=== PATIENT | female | born 1955 | race Caucasian/White ===

== ENCOUNTER → 2016-06-21 | Outpatient (CLI) | payer OTHER ==
[~2016-06-21] MED LIST: ASPCH81 PO; CLOP1TAB15 PO; FLUO10CA48 PO; METO25TA56 PO; SIMV80TA2 PO
--- NOTE | 2016-06-21 15:35 | MAMMOGRAPHY REPORT ---
BILATERAL DIGITAL SCREENING MAMMOGRAM TOMOSYNTHESIS WITH CAD: 06/21/2016 CLINICAL HISTORY: Routine screening. Patient has no complaints. TECHNIQUE: Breast tomosynthesis in addition to standard 2D mammography was performed. Current study was also evaluated with a Computer Aided Detection (CAD) system. COMPARISON: Comparison is made to exams dated: 06/20/2015 mammogram, 06/11/2013 mammogram, 06/14/2014 m ammogram, 06/06/2012 mammogram, 06/01/2011 mammogram, and 05/29/2010 mammogram - [facility]. BREAST COMPOSITION: There are scattered areas of fibroglandular density in both breasts. FINDINGS: No suspicious masses, calcifications, or areas of architectural distortion are noted in e ither breast. There are increased calcifications in the right lower inner quadrant although these ar e in association with a fat density mass (oil cyst), and consistent with dystrophic calcifications f rom fat necrosis. IMPRESSION: ACR BI-RADS CATEGORY 2: BENIGN There is no mammographic evidence of malignancy. A 1 year screening mammogram is recommended. The p atient will receive written notification of the results. Approximately 10% of breast cancers are not detected with mammography. A negative mammographic repor t should not delay biopsy if a clinically suggestive mass is present. Ann Sanchez M.D. ah/:06/21/2016 15:03:35 Manager Assurance: Igor PINTO(R)(M), [facility] letter sent: Normal 1/2 BI-RADS Code: ACR BI-RADS Category 2: Benign
== END | disposition home or self-care (01) ==
LOC: C.MAMM 10:49
PROVIDERS: ATTEND Family Medicine
DX: Z12.31 Encounter for screening mammogram for malignant neoplasm of breast (principal)

== ENCOUNTER → 2017-05-24 | Outpatient (CLI) | payer OTHER ==
[2017-05-24 12:30] LABS: CHOLESTEROL/HDL RATIO 2.4
== END | disposition home or self-care (01) ==
LOC: C.LABBFT 09:00
PROVIDERS: ATTEND Internal Medicine Cardiovascular Disease
DX: E78.5 Hyperlipidemia, unspecified (principal); I10 Essential (primary) hypertension

== ENCOUNTER → 2017-07-03 | Outpatient (CLI) | payer OTHER ==
[2017-07-03 18:03] LABS: BASO % 0.5 %; BASO ABS # 0.04 K/uL (0-0.2); EOS % 4.2 %; EOS ABS # 0.32 K/uL (0-0.5); HEMATOCRIT 45.1 % (37-47); HEMOGLOBIN 14.7 g/dL (12.0-16.0); IG# 0.01 K/uL (0.00-0.02); LYMPH % 25.4 %; LYMPH ABS # 1.92 K/uL (1.2-3.4); MEAN CELL VOLUME 95.8 fL (80-100); MEAN CORPUSCULAR HEMOGLOBIN 31.2 pg (25-34); MEAN CORPUSCULAR HGB CONC 32.6 g/dl (32-36); MEAN PLATELET VOLUME 11.3 fL (7.4-10.4); MONO % 6.7 %; MONO ABS # 0.51 K/uL (0.11-0.59); NEUT % 63.1 %; NEUT ABS # 4.76 K/uL (1.4-6.5); PLATELET COUNT 271 K/uL (130-400); RED CELL DISTRIBUTION WIDTH CV 13.4 % (11.5-14.5); RED CELL DISTRIBUTION WIDTH SD 46.9 fL (36.4-46.3); WHITE BLOOD COUNT 7.56 K/uL (4.8-10.8)
[2017-07-03 18:05] LABS: BLOOD UREA NITROGEN 14 mg/dl (7-18); CALCIUM 9.3 mg/dl (8.5-10.1); CARBON DIOXIDE 27 mmol/L (21-32); CREATININE 0.98 mg/dl (0.60-1.20); GLUCOSE 99 mg/dl (70-99); POTASSIUM 3.6 mmol/L (3.5-5.1); SODIUM 139 mmol/L (136-145)
== END | disposition home or self-care (01) ==
LOC: C.LABBFT 15:30
PROVIDERS: ATTEND Physician Assistant Medical
DX: R31.9 Hematuria, unspecified (principal)

== ENCOUNTER → 2017-07-05 | Outpatient (CLI) | payer OTHER ==
--- NOTE | 2017-07-05 09:42 | DIAGNOSTIC IMAGING REPORT ---
CT SCAN OF THE ABDOMEN AND PELVIS WITHOUT IV CONTRAST CLINICAL HISTORY: Right flank pain. Hematuria. COMPARISON STUDY: Abdominal CT dated 03/11/2008. TECHNIQUE: CT scan of the abdomen and pelvis is performed from the lung bases to the proximal femora. Images are reviewed in the axial, sagittal, and coronal planes. IV contrast was not administered for this examination. A dose lowering technique was utilized adhering to the principles of ALARA. CT DOSE: 435.58 mGy.cm FINDINGS: Lung bases: The heart is normal in size and without pericardial effusion. The lung bases are clear. Liver: The unenhanced liver is normal in size, contour, and attenuation. There is no intrahepatic biliary ductal dilatation. Gallbladder: Small gallstones are suspected. The gallbladder is otherwise normal in appearance. Spleen: Normal in size and attenuation. Pancreas: Unremarkable. Adrenal glands: Unremarkable. Kidneys: The unenhanced kidneys demonstrate cortical atrophy. There is a 7 mm obstructing calculus in the right proximal ureter seen on image #166 which causes mild right-sided hydronephrosis. This is located just below the ureteropelvic junction at the level of L2-L3. 2 additional punctate nonobstructing calculi are seen in the right. No left renal calculi are clearly seen. There is no left-sided hydronephrosis. There is no evidence of contour deforming renal mass lesion. Abdominal vasculature: The abdominal aorta is normal in course and caliber noting moderate atherosclerotic calcification. Bowel: There are scattered colonic diverticula without CT evidence of acute diverticulitis. No bowel obstruction is seen. The appendix is well-visualized and normal. Peritoneum: There is no intraperitoneal free air or abdominal ascites. There is a tiny fat-containing umbilical hernia. Lymphadenopathy: None. Pelvic viscera: The bladder, uterus, and adnexa are normal as visualized. A surgical clip is noted in the left adnexa. Skeletal structures: The skeletal structures are osteopenic. There are postoperative changes from L5 -S1 spinal fusion. A disc herniation is suspected at L3-L4. No lytic or blastic lesions are seen. IMPRESSION: 1. There is a 7 mm obstructing calculus in the right proximal ureter. This causes mild right-sided hydronephrosis. 2. At least 2 additional punctate nonobstructing calculi are noted in the right kidney. 3. No left renal calculi are clearly seen. 4. Additional findings as above. Electronically signed by: Keshawn Boston M.D. 07/05/2017 9:41 AM Dictated Date/Time: 07/05/2017 9:34 AM
== END | disposition home or self-care (01) ==
LOC: C.CTS 09:15
PROVIDERS: ATTEND Physician Assistant Medical
DX: N20.2 Calculus of kidney with calculus of ureter (principal)

== ENCOUNTER → 2017-07-09 | Outpatient (CLI) | payer OTHER ==
[~2017-07-09] MED LIST changes: +ASPI81TA28 PO; +CLON0.5T3 PO; +ONDA4TAB46 PO; +PANT40TA PO
--- NOTE | 2017-07-09 12:15 | DIAGNOSTIC IMAGING REPORT ---
[facility] CLINICAL HISTORY: 61 years-old Female presenting with N20.0 [id number]. TECHNIQUE: Single supine view of the abdomen was obtained. COMPARISON: CT from 07/05/2017. FINDINGS: Nonobstructive bowel gas pattern. No gross pneumoperitoneum. Allowing for bowel gas and stool, calcification projects over the lower pole of the right kidney. Atherosclerosis suspected. Posterior lumbar fusion hardware at L5-S1 with laminectomy defect. IMPRESSION: 1. The previously noted calculus in the proximal right ureter may have been displaced into a lower pole calyx as the calculus now projects over the right lower pole. Electronically signed by: Brant Bal M.D. 07/09/2017 12:13 PM Dictated Date/Time: 07/09/2017 12:11 PM
--- NOTE | 2017-07-09 13:34 | DIAGNOSTIC IMAGING REPORT ---
CHEST 2 VIEWS ROUTINE CLINICAL HISTORY: NEPHROLITHIASIS PREOPERATIVE CHEST COMPARISON STUDY: No previous studies for comparison. FINDINGS: The cardiac and mediastinal contours are normal. There is no evidence of focal pulmonary consolidation. There is no evidence of failure. No pleural effusions are visualized.[ IMPRESSION: No active disease in the chest. Electronically signed by: Saad Chambers M.D. 07/09/2017 1:32 PM Dictated Date/Time: 07/09/2017 1:32 PM
== END | disposition home or self-care (01) ==
LOC: C.RAD 11:37
PROVIDERS: ATTEND Urology
DX: N20.0 Calculus of kidney (principal)

== ENCOUNTER → 2017-07-18 | Outpatient (CLI) | payer OTHER ==
[~2017-07-18] MED LIST changes: -ASPCH81 PO; -CLOP1TAB15 PO; -FLUO10CA48 PO
--- NOTE | 2017-07-18 15:48 | DIAGNOSTIC IMAGING REPORT ---
K[facility] HISTORY: Follow-up study in a patient with nephrolithiasis. Preoperative evaluation for lithotripsy N20.0 [id number] COMPARISON: [facility] 07/09/2017, CT 07/05/2017. FINDINGS: The bowel gas pattern is non-obstructive. There is no organomegaly. The previously noted 5 mm calculus of the proximal right ureter has migrated inferiorly approximately 4 cm now at the level of L3. No additional nephrolithiasis or ureteral calculi. Renal shadows are partially obscured by bowel gas. No pneumoperitoneum or pneumatosis. No fracture. Fusion hardware at L5-S1 redemonstrated. IMPRESSION: Approximately 4 cm distal migration of the 5 mm right ureteral calculus, now at the level of L3. Electronically signed by: Yosvany Tang M.D. 07/18/2017 3:46 PM Dictated Date/Time: 07/18/2017 3:43 PM
== END | disposition home or self-care (01) ==
LOC: C.RAD 15:22
PROVIDERS: ATTEND Urology
DX: N20.0 Calculus of kidney (principal)

== ENCOUNTER → 2017-07-19 | Day surgery (SDC) | payer OTHER ==
[2017-07-11 13:20] VITALS: Ht 154.9 cm; Wt 72.7 kg
[~2017-07-19] VITALS: Ht 154.9 cm; Wt 72.7 kg
[~2017-07-19] MED LIST changes: +ATROPINE SULFATE 0.1 MG/ML 5ML SYR IV PRN; +CIPROFLOXACIN 400MG / D5W IV SCH; +EpHEDrine SULFATE INJ 50 MG/ML AMP IV PRN; +FENTANYL CITRATE INJ 50 MCG/1 ML 2 ML VIAL ONE; +LACTATED RINGER'S 1000ML 1,000 ML IV SCH; +LIDOCAINE HCL 2% 2 ML VIAL (20MG/ML) ONE; +MIDAZOLAM HCL 1 MG/ML 2ML VIAL ONE; +ONDANSETRON INJ 2 MG/ML 2 ML VIAL IV PRN; +ONDANSETRON INJ 2 MG/ML 2 ML VIAL ONE; +OXYCODONE/ACETAMINOPHEN 5-325 TAB PO PRN; +PROPOFOL IV EMULSION 10 MG/ML 20 ML VIAL IV ONE
--- NOTE | 2017-07-19 07:01 | History & Physical Bridge Note ---
H&P Re-Evaluation Bridge Note: I have examined the patient, reviewed the History & Physical and in the interval since the performance of the History & Physical I have noted the following changes of clinical significance: No changes noted
--- NOTE | 2017-07-19 07:46 | [facility] Post Operative Brief Note ---
Immediate Operative Summary Operative Date Jul 19, 2017. Pre-Operative Diagnosis Right Upper Ureteral Calculi Post-Operative Diagnosis Same Procedure(s) Performed Right Ureteral Extracorporeal Shock Wave Lithotripsy Surgeon Dr. Martín Mills Mailroom Associate Surgeon(s) None Estimated Blood Loss 0 Findings See Below Good stone fragmentation on fluoro Specimens None Drains None Anesthesia Type General Complication(s) none Disposition Accompanied Pt To Recover: no Disposition: Recovery Room / PACU
--- NOTE | 2017-07-19 07:50 | Discharge Instructions ---
Discharge Instructions Date of Service Jul 19, 2017. Admission Reason for Admission: Stones Discharge Discharge Diagnosis / Problem: R UPJ stone s/p ESWL Discharge Goals Goal(s): Decrease discomfort, Improve function, Improve disease control, Therapeutic intervention Activity Recommendations Activity Limitations: as noted below Lifting Limitations: no more than 25 pounds, gradually increase as tolerated Exercise/Sports Limitations: rest today, gradually increase as tolerated May Resume Sexual Activity: when tolerated Shower/Bathe: no limitations Driving or Machine Use: resume 1 day after discharge . Instructions / Follow-Up Instructions / Follow-Up Follow-up as scheduled in office with [facility] Xray beforehand. Current Hospital Diet Patient's current hospital diet: Discharge Diet Recommended Diet: Regular Diet (good fluid intake) Procedures Procedures Performed: Right Ureteral Extracorporeal Shock Wave Lithotripsy Pending Studies Studies pending at discharge: no Laboratory Results Lipid Panel Test 05/24/17 09:06 Range/Units Triglycerides Level 71 0-150 mg/dl Cholesterol Level 139 0-200 mg/dl HDL Cholesterol 59 mg/dl Cholesterol/HDL Ratio 2.4 LDL Cholesterol, Calculated 66 mg/dl Medical Emergencies . Who to Call and When: Medical Emergencies: If at any time you feel your situation is an emergency, please call 911 immediately. . Non-Emergent Contact Non-Emergency issues call your: Urologist Call Non-Emergent contact if: you have a fever, temperature is above 101, your pain is not controlled, your pain is worsening, your pain is unusual for you, your pain is concerning you, you have any medication questions . . "Provider Documentation" section prepared by Suresh Mills. . VTE Core Measure Inpt VTE Proph given/why not?: SCD's
--- NOTE | 2017-07-19 08:06 | OPERATIVE REPORT ---
DATE OF OPERATION: 07/19/2017 PREOPERATIVE DIAGNOSIS: Right ureteropelvic junction stone. POSTOPERATIVE DIAGNOSIS: Same. PROCEDURE: Right upper ureteral extracorporeal shockwave lithotripsy. SURGEON: Dr. Suresh Mills. SLIVER LAP TENDER: None. ANESTHESIA: General anesthesia with laryngeal mask. COMPLICATIONS: None. ESTIMATED BLOOD LOSS: None. FINDINGS: Excellent stone fragmentation on fluoroscopy. DETAILS OF PROCEDURE: The patient was brought to the litho suite. He was correctly identified and the stone was visualized on his most recent x-rays. After the correct time out was performed the patient was positioned over the therapy head. An adequate level of anesthesia was administered. The extracorporeal shockwave lithotripsy treatment was then commenced. Please see the [facility] Management sheet for complete treatment summary. After completion of the procedure the patient was taken to the recovery room in stable condition. I attest to the content of the Intraoperative Record and any orders documented therein. Any exception s are noted below.
[2017-07-19 08:38] VITALS: TEMP 36.2
[2017-07-19 09:02] VITALS: BP 122/83; PULSE 55; O2SAT 100
--- NOTE | 2017-07-19 09:03 | Anesthesia Progress Nt - [facility] ---
Anesthesia Post Op Note Date & Time Jul 19, 2017 at 09:03 Vital Signs Pain Intensity: 0 Vital Signs Past 12 Hours Date Time Temp Pulse Resp B/P (MAP) Pulse Ox O2 Delivery O2 Flow Rate FiO2 07/19/17 08:38 36.2 59 16 106/66 (79) 96 Room Air 07/19/17 08:35 36.2 65 16 119/70 97 Room Air 07/19/17 08:32 64 15 07/19/17 08:32 63 15 97 07/19/17 08:31 122/71 07/19/17 08:27 57 9 98 07/19/17 08:27 58 9 07/19/17 08:26 115/67 07/19/17 08:22 59 8 07/19/17 08:22 59 8 98 07/19/17 08:21 118/65 07/19/17 08:17 60 12 98 07/19/17 08:17 60 12 07/19/17 08:16 118/68 07/19/17 08:12 61 12 98 07/19/17 08:12 61 12 07/19/17 08:11 113/70 07/19/17 08:07 63 12 07/19/17 08:07 63 12 97 07/19/17 08:06 112/67 07/19/17 08:04 62 13 97 07/19/17 08:04 62 13 07/19/17 08:01 117/65 07/19/17 07:59 36.3 65 16 117/66 96 Mask 4 07/19/17 06:29 36.7 72 16 131/82 (98) 97 Room Air Notes Mental Status: alert / awake / arousable, participated in evaluation Pt Amnestic to Procedure: Yes Nausea / Vomiting: adequately controlled Pain: adequately controlled Airway Patency, RR, SpO2: stable & adequate BP & HR: stable & adequate Hydration State: stable & adequate Anesthetic Complications: no major complications apparent
== END | disposition home or self-care (01) ==
LOC: X.SURG 06:13
PROVIDERS: ATTEND Urology
DX: N20.1 Calculus of ureter (principal); I25.2 Old myocardial infarction; F41.9 Anxiety disorder, unspecified; Z79.82 Long term (current) use of aspirin; Z79.899 Other long term (current) drug therapy; Z88.8 Allergy status to other drugs, medicaments and biological substances; Z90.89 Acquired absence of other organs; Z98.890 Other specified postprocedural states

== ENCOUNTER → 2017-08-01 | Outpatient (CLI) | payer OTHER ==
[~2017-08-01] MED LIST changes: -ATROPINE SULFATE 0.1 MG/ML 5ML SYR IV PRN; -CIPROFLOXACIN 400MG / D5W IV SCH; -EpHEDrine SULFATE INJ 50 MG/ML AMP IV PRN; -FENTANYL CITRATE INJ 50 MCG/1 ML 2 ML VIAL ONE; -LACTATED RINGER'S 1000ML 1,000 ML IV SCH; -LIDOCAINE HCL 2% 2 ML VIAL (20MG/ML) ONE; -MIDAZOLAM HCL 1 MG/ML 2ML VIAL ONE; -ONDANSETRON INJ 2 MG/ML 2 ML VIAL IV PRN; -ONDANSETRON INJ 2 MG/ML 2 ML VIAL ONE; -OXYCODONE/ACETAMINOPHEN 5-325 TAB PO PRN; -PROPOFOL IV EMULSION 10 MG/ML 20 ML VIAL IV ONE
== END | disposition home or self-care (01) ==
LOC: C.LABSPEC 17:11
PROVIDERS: ATTEND Urology
DX: N20.0 Calculus of kidney (principal)

== ENCOUNTER → 2017-08-01 | Outpatient (CLI) | payer OTHER ==
--- NOTE | 2017-08-01 10:35 | DIAGNOSTIC IMAGING REPORT ---
[facility] CLINICAL HISTORY: N20.0 nephrocalcinosis COMPARISON STUDY: 07/18/2017 FINDINGS: The mid right ureteral calculus now appears to be somewhat fragmented. There is a 2 mm residual calcification in the region of the distal right ureter. All remaining components of the study are unchanged. Bowel pattern is nonobstructive. IMPRESSION: 1. Apparent interval fragmentation of a 5 mm calcification previous described mid right ureter. 2. A residual fragment appears to be present overlying the extreme distal right ureter immediately proximal to the right ureterovesical junction. 3. No residual fragments proximal to this level. The above report was generated using voice recognition software. It may contain grammatical, syntax or spelling errors. Electronically signed by: Julien Riddle M.D. 08/01/2017 10:34 AM Dictated Date/Time: 08/01/2017 10:32 AM
== END | disposition home or self-care (01) ==
LOC: C.RAD 10:16
PROVIDERS: ATTEND Urology
DX: N20.0 Calculus of kidney (principal); N20.1 Calculus of ureter

== ENCOUNTER → 2017-08-06 | Outpatient (CLI) | payer OTHER ==
--- NOTE | 2017-08-06 15:15 | MAMMOGRAPHY REPORT ---
BILATERAL DIGITAL SCREENING MAMMOGRAM TOMOSYNTHESIS WITH CAD: 08/06/2017 CLINICAL HISTORY: Routine screening. Patient has no complaints. TECHNIQUE: Breast tomosynthesis in addition to standard 2D mammography was performed. Current study was also evaluated with a Computer Aided Detection (CAD) system. COMPARISON: Comparison is made to exams dated: 06/21/2016 mammogram, 06/20/2015 mammogram, 06/14/2014 m ammogram, 06/11/2013 mammogram, 06/06/2012 mammogram, and 06/01/2011 mammogram - [facility] nter. BREAST COMPOSITION: There are scattered areas of fibroglandular density in both breasts. FINDINGS: There is a benign coarse calcification in the lower inner quadrant of the right breast, lik michelle representing fat necrosis as an oil cyst was previously identified in that location. No suspicio us mass, architectural distortion or cluster of suspicious microcalcifications is seen. IMPRESSION: ACR BI-RADS CATEGORY 1: NEGATIVE There is no mammographic evidence of malignancy. A 1 year screening mammogram is recommended. The pa tient will receive written notification of the results. Approximately 10% of breast cancers are not detected with mammography. A negative mammographic report should not delay biopsy if a clinically suggestive mass is present. Jes Ramos M.D. ay/:08/06/2017 12:58:54 Carburetor Expert: Elizabeth PINTO(Merritt)(Marina)(BD), [facility] letter sent: Normal 1/2 BI-RADS Code: ACR BI-RADS Category 1: Negative
== END | disposition home or self-care (01) ==
LOC: C.MAMM 12:26
PROVIDERS: ATTEND Internal Medicine
DX: Z12.31 Encounter for screening mammogram for malignant neoplasm of breast (principal)

== ENCOUNTER 2019-03-07 08:18 | Observation (INO) ==
[2019-03-07] MEDS ORDERED: NITROGLYCERIN SL 0.4 MG/TAB TAB SL STA (09:10)
[2019-03-07] MEDS ORDERED: ASPIRIN CHEW 324 MG PO STA (09:10)
[2019-03-07] MEDS ORDERED: SODIUM CHLORIDE 0.9% 1000ML 1,000 ML IV SCH (09:15)
[2019-03-07 09:41] LABS: Basophils # (auto) 0.04 K/uL (0-0.2); Basophils % (auto) 0.5 %; Eosinophils # (auto) 0.18 K/uL (0-0.5); Eosinophils % (auto) 2.4 %; Hemoglobin 14.8 g/dL (12.0-16.0); Immature Granulocytes # (auto) 0.01 K/uL (0.00-0.02); Immature Granulocytes % (auto) 0.1 %; Lymphocytes # (auto) 1.27 K/uL (1.2-3.4); Mean Corpuscular Hemoglobin 32.1 pg (25-34); Mean Corpuscular Hgb Conc 34.4 g/dL (32-36); Mean Corpuscular Volume 93.3 fL (80-100); Mean Platelet Volume 10.2 fL (7.4-10.4); Monocytes # (auto) 0.54 K/uL (0.11-0.59); Monocytes % (auto) 7.2 %; Neutrophils # (auto) 5.42 K/uL (1.4-6.5); Neutrophils % (auto) 72.8 %; Platelet Count 282 K/uL (130-400); RDW Coefficient of Variation 13.8 % (11.5-14.5); RDW Standard Deviation 47.5 fL (36.4-46.3); Red Blood Count 4.61 M/uL (4.2-5.4); White Blood Count 7.46 K/uL (4.8-10.8)
--- NOTE | 2019-03-07 09:43 | XRay Report ---
XR chest 1V portable CLINICAL HISTORY: Atypical chest pain COMPARISON STUDY: 09/05/2018 FINDINGS: The cardiac and mediastinal contours are normal. There is no evidence of focal pulmonary co nsolidation. There is no evidence of failure. No pleural effusions are visualized.[No pneumothorax is visualized. IMPRESSION: No active disease in the chest. Electronically signed by: Saad Chambers M.D. 03/07/2019 9:42 AM
[2019-03-07 09:55] LABS: Alanine Aminotransferase 16 U/L (12-78); Albumin Level 4.1 gm/dl (3.4-5.0); Aspartate Aminotransferase 12 U/L (15-37); BUN Creatinine Ratio 12.5 (10-20); Blood Urea Nitrogen 14 mg/dl (7-18); Calcium 9.7 mg/dl (8.5-10.1); Carbon Dioxide 23 mmol/L (21-32); Chloride 107 mmol/L (98-107); Creatinine Clr Calc Pharmacy 45.4 ml/min; Est GFR (African American) 60.4; Est GFR (Non-African American) 52.1; Glucose 96 mg/dl (70-99); Lipase 89 U/L (73-393); Potassium 3.7 mmol/L (3.5-5.1); Sodium 138 mmol/L (136-145)
[2019-03-07 10:00] LABS: Albumin Globulin Ratio 1.2 (0.9-2); Alkaline Phosphatase 91 U/L (45-117); Bilirubin,Total 0.4 mg/dl (0.2-1); Creatine Kinase 83 U/L (26-192); Creatine Kinase MB 1.2 ng/ml (0.5-3.6); Globulin 3.4 gm/dl (2.5-4.0); Total Protein 7.5 gm/dl (6.4-8.2); Troponin I < 0.015 ng/ml (0-0.045)
[2019-03-07 10:01] LABS: Appearance Urine Clear (Clear); Bilirubin Urine Negative (Negative); Blood Urine Negative (Negative); Color Urine Yellow; Glucose Urine UA Negative (Negative); Ketones Urine 1+ (Negative); Leukocyte Esterase Urine Negative (Negative); Nitrite Urine Negative (Negative); Protein Urine Negative (Negative); Specific Gravity Urine 1.023 (1.000-1.030); Urobilinogen Urine Negative (Negative); pH Urine 5.5 (4.5-7.5)
--- NOTE | 2019-03-07 10:11 | CT Scan Report ---
CT SCAN OF THE ABDOMEN AND PELVIS WITHOUT CONTRAST CLINICAL HISTORY: Diffuse abdominal pain COMPARISON STUDY: July 05, 2017 TECHNIQUE: CT scan of the abdomen and pelvis was performed from the lung bases to the proximal femurs . Images are reviewed in the axial, sagittal, and coronal planes. IV contrast was not administered fo r this examination. A dose lowering technique was utilized adhering to the principles of ALARA. CT DOSE: 444.41 mGy.cm FINDINGS: Lower chest: The heart is normal in size and configuration, without pericardial effusion. The lung ba ses and pleural spaces are clear. Liver: The unenhanced liver is normal in size, contour, and attenuation. There is no intrahepatic miguel iary ductal dilatation. Gallbladder: Cholelithiasis Spleen: Normal in size and attenuation. Pancreas: Unremarkable. Adrenal glands: Unremarkable. Kidneys: 3 right renal calculi are visualized. There is minimal fullness the right renal collecting s ystem. There is no ureteral dilatation. No ureteral calculi are visualized. Bowel: There are no transition zones indicate bowel obstruction. There is no evidence of acute divert iculitis. The appendix appears normal. Peritoneum: There is no intraperitoneal free air or abdominal ascites. Vasculature: The abdominal aorta is normal in course and caliber. Adenopathy: None. Pelvic viscera: The bladder, and pelvic viscera are unremarkable. Skeletal structures: Postsurgical changes are present within the lumbar spine. IMPRESSION: 1. No evidence of bowel obstruction. No evidence of free air 2. Normal appendix. No evidence of acute diverticulitis 3. Right-sided nephrolithiasis. No ureteral or bladder calculi identified 4. Cholelithiasis. Electronically signed by: Saad Chambers M.D. 03/07/2019 10:10 AM
--- NOTE | 2019-03-07 11:31 | History & Physical Report ---
Date of Service March 07, 2019 Assessment & Plan (1) Chest pain: Pt is 63 y/o F with PMH HTN, dyslipidemia, CAD s/p NE and RAMAN to LAD in 2009, lymphedema left leg, anxiety presented with c/o chest pressure last evening. In ER afebrile, P: 50's-80's, R: 18, BP: 123/81, 95% on RA. EKG: sinus bradycardia, rate 58, diffuse t wave inversion (seen on prior EKG 09/2018). Initial troponin negative. In ER given ASA, SL nitro x 1 with reported relief of chest pressure. CHEST PAIN R/O ACS. Risk factors: HTN, hyperlipidemia, CAD -Monitor Vitals -Repeat EKG in am -Will trend troponin -Echo -Llipid panel in am, continue statin -Continue aspirin and metoprolol -Nitro prn CP and repeat EKG for CP -Cardiology consult (2) Abdominal pain: Reported lower abdominal pain and pelvic pressure x 3 days. No fever/chills. Denies hematuria, dysuria, urinary frequency. Initially treated with Bactrim x 3 days by PCP, finished 03/07/19 without improvement. UA unremarkable, no leukocytosis CT ABD/PELVIS: No evidence of bowel obstruction. No evidence of free air. Normal appendix. No evidence of acute diverticulitis. Right-sided nephrolithiasis. No ureteral or bladder calculi identified. Cholelithiasis. -Urine culture pending -Rocephin for now pending urine culture -Pelvic ultrasound (3) HTN (hypertension): Stable -Continue metoprolol (4) Dyslipidemia: -Continue statin (5) Anxiety: Stable -Continue Klonopin prn DVT Prophylaxis -Heparin SQ Full Code as per discussion with pt Follows with Dr Carrillo for routine care Pt was seen and care coordinated with Dr Joyner. See addendum History of Present Illness Chief Complaint: Lower abdominal pressure. CP pressure. Primary Care Provider: China Carrillo DO Pt is 63 y/o F with PMH HTN, dyslipidemia, CAD s/p NE and RAMAN to LAD in 2009, lymphedema left leg, anxiety presented to ER with c/o lower abdominal pressure x 3 days. Reports that PCP started on Bactrim 03/04/19 for 3 day course and she finished today. Reports no improvement in lower abdominal/pelvic pressure. Denies any dysuria, hematuria, urinary frequency hesitancy or retention. Denies any vaginal discharge or bleeding. LMP greater than 20 years ago. 03/04/2019 urine culture unremarkable. Denies other abdominal pain, nausea, vomiting. 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 [place] warm at the time. Reports went home and rested and chest pressure decreased but still present. No prior treatment. Denies any shortness of breath, dizziness, syncope, nausea, vomiting, diaphoresis. Pt reports over past several months with intermittent anterior chest pressure episodes but is unsure how often and how long symptoms have occurred or what she is doing when they have happened. She doesn't feel like this CP is similar to when she had her NE. Denies fever/chills, diarrhea, constipation, MILES, syncope, vision changes, neck pain, orthopnea, palpitations, cough, sore throat, choking, otalgia, rhinorrhea, paresthesias, weakness, extremity weakness, extremity edema, rashes. Follows with Dr Yeung - Cardiology H/O negative stress echo in 2011. In ER pt given ASA 324mg and Nitro SL x 1 with relief of chest pressure. Initial troponin negative. Allergies Allergy/AdvReac Type Severity Reaction Status Date / Time fluoxetine Allergy Unknown NAUSEA Verified 03/07/19 08:43 venlafaxine Allergy Unknown NAUSEA Verified 03/07/19 08:43 Home Medications Home Medications Medication Instructions Recorded Confirmed Type aspirin 81 mg PO DAILY 09/05/18 03/07/19 History metoprolol tartrate 25 mg PO BID 09/05/18 03/07/19 History simvastatin 80 mg PO QPM 09/05/18 03/07/19 History clonazepam 0.5 mg tablet 0.5 mg PO TID PRN #30 tab 10/23/18 03/07/19 History Past Med/Surg History Medical History Anxiety (Chronic) History of myocardial infarction (Chronic) HTN (hypertension) (Chronic) Presence of stent in artery (Chronic) Nephrolithiasis (Chronic) Lymphedema of left leg (Chronic) Grief reaction (Resolved) Dyslipidemia (Chronic) Arteriosclerotic coronary artery disease (Chronic) Surgical History History of cardiac catheterization (Chronic) RAMAN to LAD, 2009 Family History Other Cancer Coronary heart disease Diabetes Hypertension Social History Preferred Language: [place]ibian Communication Ability: Effective Civilian Technician Required: No Beliefs That Will Affect Care: None marital status: Current Living Situation: Alone current occupational status: employed Other Information That Helps Us Care for You: No Feels Safe at Home: Yes Safety Concerns: Feels Safe At This Time Smoking Status: Never smoker Hx Alcohol Use: Yes Alcohol Intake Frequency: Holidays/Special Occasions Hx Substance Use: No Review of Systems Review of Systems: All systems reviewed & are unremarkable except as noted in HPI & below Physical Exam Physical Exam: General: no distress, WDWN Head: normocephalic, atraumatic Eyes: PERRL, EOM's intact, conjunctiva non-injected, anicteric ENT: normal inspection external ears, nose, mucous membranes moist Neck: supple, trachea midline Lungs: clear, no respiratory distress, no wheezing/rhonchi/rales CV: RRR, no murmur, left leg with lymphedema, RLE without pretibial edema Abd: normal BS, soft, mild tenderness to LLQ, suprapubic, RLQ without gaurding or rebound Ext: no cyanosis, no calf tenderness Neuro: A&O x 3, no focal deficits noted, normal affect Skin: warm, dry Results & Data Vital Signs (Past 12 Hours) Vital Signs Temp Pulse Pulse Resp BP BP Pulse Ox 03/07/19 10:51 61 16 112/93 03/07/19 09:19 66 18 109/83 99 03/07/19 08:23 36.7 C 89 18 123/81 Laboratory Results Short CBC 03/07/19 Range/Units 09:17 WBC 7.46 (4.8-10.8) K/uL Hgb 14.8 (12.0-16.0) g/dL Hct 43.0 (37-47) % Plt Count 282 (130-400) K/uL BMP 03/07/19 09:17 Sodium 138 Potassium 3.7 Chloride 107 Carbon Dioxide 23 BUN 14 Creatinine 1.11 Glucose 96 Calcium 9.7 Cardiac Enzymes 03/07/19 Range/Units 09:17 Total Creatine Kinase 83 (26-192) U/L CK-MB (CK-2) 1.2 (0.5-3.6) ng/ml Troponin I < 0.015 (0-0.045) ng/ml Liver Function 03/07/19 Range/Units 09:17 Total Bilirubin 0.4 (0.2-1) mg/dl AST 12 L (15-37) U/L ALT 16 (12-78) U/L Alkaline Phosphatase 91 (45-117) U/L Albumin 4.1 (3.4-5.0) gm/dl Urine 03/07/19 Range/Units 09:28 Urine Color Yellow Urine Appearance Clear (Clear) Urine pH 5.5 (4.5-7.5) Ur Specific [place] 1.023 (1.000-1.030) Urine Protein Negative (Negative) Urine Glucose (UA) Negative (Negative) Diagnostic Findings CXR: IMPRESSION: No active disease in the chest. CT ABD/PELVIS: IMPRESSION: 1. No evidence of bowel obstruction. No evidence of free air 2. Normal appendix. No evidence of acute diverticulitis 3. Right-sided nephrolithiasis. No ureteral or bladder calculi identified 4. Cholelithiasis. ECG Rate (beats per minute): 58 Rhythm: sinus bradycardia Findings: + T-wave inversion (Diffuse) Additional Comments: no significant change from EKG 09/2018 Code Status & VTE Plan VTE Prophylaxis Plan VTE Prophylaxis will be ordered: Yes Supervising Physician Co-Signing Physician Notes I have seen and examined the patient with physician assistant director of financial aid and agree with the assessment and plan and would like to comment that This is a 63 year old female patient who was on outpatient oral antibiotics for 3 days bladder/pelvic pressure that was presumed as urinary tract infection. Patient denies any burning sensation when she makes urine previous or post treatment but continued to feel symptoms of pelvic/bladder persisting and came to the emergency room for evaluation. CT abdomen was results generally unremarkable to explain for persistence of symptoms and hospital urine analysis is negative. She also reported to emergency provider of chest symptoms that occurred on 03/06/19 and emergency room physician asked hospitalist provider to evaluate more emergently for the chest pain symptoms. Patient reported to hospitalist that the nitro x 1 dose in the ED helped her chest symptoms feel better. Patient was more focused on lower abdominal and bladder/pelvic area symptoms. Patient also has chronic left lower extremity edema that she reports has been worked up in the past and ruled out blood clots On physical exam General: no acute distress Lungs: clear to auscultation bilaterally Heart: regular rate and rhythm abdomen: soft, nontender, positive bowel sounds Extremities: chronic left lower extremity edema Chest pain -history of myocardial infarction with stent to LAD in the past -follows with [facility] cardiology. -[facility] cardiology does not assess that patient had ischemic cardiac event -resting echocardiogram is being performed currently after patient came up to medical telemetry cano from emergency department -initial troponin is negative Lower abdominal pain and pelvic pressure -possibly could be from an incompletely treated urinary tract infection versus bladder spasm versus other etiology -give IV ceftriaxone daily while in the hospital -pelvic ultrasound ordered chronic left lower extremity edema -patient reports this has been worked up in the past and ruled out blood clots agree with assessment and plan as documented by physician assistant director of financial aid for other issues as stated
[2019-03-07] MEDS ORDERED: ACETAMINOPHEN 325 MG TAB PO PRN (12:18)
[2019-03-07] MEDS ORDERED: clonazePAM 0.5 MG TAB PO PRN (12:18)
[2019-03-07] MEDS ORDERED: NITROGLYCERIN SL 0.4 MG/TAB TAB SL PRN (12:18)
[2019-03-07] MEDS ORDERED: cefTRIAXone SODIUM 1,000 MG in DEXTROSE 5% 50 ML IV SCH (13:00)
--- NOTE | 2019-03-07 13:10 | Cardiology Consultation ---
Date of Consultation March 07, 2019 Assessment & Plan (1) Chest pain: While she is certainly at risk of recurrent ischemic events, she has had a fairly extended episode of chest discomfort without any objective evidence of ischemia. Despite at least 4 hours of symptoms last evening and recurrent symptoms this morning her cardiac biomarkers are all normal. On her EKG is not normal it is unchanged from prior. She is quite comfortable now. She has not had other symptoms of coronary insufficiency or angina recently. Her presentation to the hospital today centered around her lower abdominal discomfort and not her chest symptoms. In the absence of any additional objective findings for ischemia I would not pursue any additional cardiac workup at this time. She should continue on her current outpatient medical regimen which consists aspirin, high-dose simvastatin and metoprolol. (2) Arteriosclerotic coronary artery disease: She is known to have had had an anterior infarct in 2009. She did have some residual disease at that time primarily involving a diagonal branch. However, she has not had symptoms related to the coronary disease or any evidence of objective ischemia based on outpatient testing. She did not report exertional symptoms recently. (3) Bradycardia: She has an element of sinus bradycardia that appears chronic. She has been maintained on low-dose metoprolol. I think this current dose can be continued as she currently has no symptoms dizziness, lightheadedness or chronotropic incompetence. History of Present Illness Reason for Consultation: Chest pain Requesting Physician: Ar Attending Physician: Po Joyner MD History of Present Illness The patient is a 63-year-old woman with a known history of coronary disease having suffered an acute myocardial infarction in 2009. Patient states that for several days she has been having some lower abdominal discomfort. She describes this as an uncomfortable sensation in the pelvic region. It has not been associated with any bowel disturbance. She has not had any systemic symptoms such as fevers or chills. She was felt to have urinary tract infection and started on antibiotic therapy. However, those symptoms have persisted. Due to the persistent nature of the symptoms she came to the emergency room again this morning. She contemplated going to urgent care but due to the predicted footb [employer] game traffic she felt that would be easier to come to our hospital. On the emergency room she also related a symptom of chest discomfort. 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 Based on the nature of the symptoms she went home to rest. This symptom of deepak st pressure waxed and waned for over 4 hours before she went to bed. She recalls having some of the symptoms for that entire duration. In the morning when she awoke she did not have any chest pressure but shortly after wakening it reoccurred. She states that in the emergency room a nitroglycerin seem to alleviate the symptoms. Currently no symptoms of chest discomfort. She has not had symptoms of nausea or vomiting recently. No dysphagia. She states that her current symptoms are not reminiscent of her prior heart attack. That episode involved a more severe discomfort as well as right arm and jaw pain. She is an otherwise active individual who is currently caring for 3 acres on her property. She mows using a riding mower. She can perform reading and other chores without symptoms of exertional chest pain or limiting dyspnea. Allergies Allergy/AdvReac Type Severity Reaction Status Date / Time fluoxetine Allergy Unknown NAUSEA Verified 03/07/19 08:43 venlafaxine Allergy Unknown NAUSEA Verified 03/07/19 08:43 Home Medications Home Medications Medication Instructions Recorded Confirmed Type aspirin 81 mg PO DAILY 09/05/18 03/07/19 History metoprolol tartrate 25 mg PO BID 09/05/18 03/07/19 History simvastatin 80 mg PO QPM 09/05/18 03/07/19 History clonazepam 0.5 mg tablet 0.5 mg PO TID PRN #30 tab 10/23/18 03/07/19 History Patient History Medical History Presence of stent in artery (Acute) Nephrolithiasis (Acute) Lymphedema of left leg (Acute) Grief reaction (Acute) Dyslipidemia (Acute) Arteriosclerotic coronary artery disease (Acute) Anxiety History of myocardial infarction Hyperlipidemia Hypertension Surgical History No significant past surgical history Social History Preferred Language: Lebanese Communication Ability: Effective Director Private Music Therapy Agency Required: No Beliefs That Will Affect Care: None marital status: Current Living Situation: Alone current occupational status: employed Other Information That Helps Us Care for You: No Feels Safe at Home: Yes Safety Concerns: Feels Safe At This Time Smoking Status: Never smoker Hx Alcohol Use: No Hx Substance Use: No Review of Systems Review of Systems: All systems reviewed & are unremarkable except as noted in HPI & below No sense of palpitation. She does have swelling in the left lower extremity which is related to lymphedema. This is not changed recently. No dizziness or lightheadedness recently. Physical Exam Physical Exam: She is alert and oriented x3. Mood affect appear normal. She answered all questions appropriately. HEENT: Sclerae are anicteric. Pupils are equal and reactive to light and accommodation. Extraocular movements were intact. Neuro: Cranial nerves intact Neck: Examination of the submandibular region did not reveal any significant lymphadenopathy. Carotids are palpable bilaterally and free of bruits on auscultation. There was no evidence of jugular venous distention. The thyroid was not enlarged. Lungs: Lungs are clear to auscultation bilaterally. There are no rales wheezes or rhonchi. She has normal respiratory effort without use of accessory muscles. There is normal pulmonary excursion. Cardiac: The rhythm was regular. S1 and S2 were normal. There are no murmurs on examination. The PMI was not markedly displaced on palpation. Abdomen: Abdomen is soft. No peritoneal signs. Extremities: Patient has bilateral radial pulses that are equal in intensity. There is no evidence cyanosis or clubbing. Left leg is in large versus the right. Skin: There are no rashes noted on examination today. Results & Data Vital Signs (Past 12 Hours) Vital Signs Temp Pulse Pulse Resp BP BP Pulse Ox 03/07/19 12:37 36.5 C 53 L 16 111/69 100 03/07/19 12:34 57 L 03/07/19 11:58 52 L 16 108/62 98 03/07/19 11:43 72 16 108/62 03/07/19 10:51 61 16 112/93 03/07/19 09:19 66 18 109/83 99 03/07/19 08:23 36.7 C 89 18 123/81 Laboratory Results Abnormal Lab Results 03/07/19 03/07/19 03/07/19 09:17 09:17 09:28 WBC 7.46 RBC 4.61 Hgb 14.8 Hct 43.0 MCV 93.3 MCH 32.1 MCHC 34.4 RDW Std Deviation 47.5 H RDW Coeff of Ivan 13.8 Plt Count 282 MPV 10.2 Immature Gran % (Auto) 0.1 Neut % (Auto) 72.8 Lymph % (Auto) 17.0 [place] % (Auto) 7.2 Eos % (Auto) 2.4 Baso % (Auto) 0.5 Immature Gran # (Auto) 0.01 Neut # (Auto) 5.42 Lymph # (Auto) 1.27 [place] # (Auto) 0.54 Eos # (Auto) 0.18 Baso # (Auto) 0.04 Sodium 138 Potassium 3.7 Chloride 107 Carbon Dioxide 23 Anion Gap 8.0 BUN 14 Creatinine 1.11 Est Cr Clr Drug Dosing 45.4 Est GFR ( Amer) 60.4 Est GFR (Non-Af Amer) 52.1 BUN/Creatinine Ratio 12.5 Glucose 96 Calcium 9.7 Total Bilirubin 0.4 AST 12 L ALT 16 Alkaline Phosphatase 91 Total Creatine Kinase 83 CK-MB (CK-2) 1.2 CK/CKMB % Calc 1.4 Troponin I < 0.015 Total Protein 7.5 Albumin 4.1 Globulin 3.4 Albumin/Globulin Ratio 1.2 Lipase 89 Urine Color Yellow Urine Appearance Clear Urine pH 5.5 Ur Specific [place] 1.023 Urine Protein Negative Urine Glucose (UA) Negative Urine Ketones 1+ H Urine Blood Negative Urine Nitrite Negative Urine Bilirubin Negative Urine Urobilinogen Negative Ur Leukocyte Esterase Negative Diagnostic Findings Stress echocardiogram performed 2011 did not reveal any evidence of inducible ischemia. Anteroapical wall motion abnormality. Normal LV systolic function. ECG Additional Comments: EKG demonstrated normal sinus rhythm with T-wave inversions in the anterior precordial leads PG Care Time/CCT Total # of Minutes Spent Total Time Spent with Patient: Total time spent is greater than 50% in coordination of care (as documented) at patient's floor/unit and/or counseling patient:
[2019-03-07] MEDS ORDERED: PERFLUTREN LIPID MICROSPHERE (DEFINITY) IV ONE (13:59)
[2019-03-07] MEDS ORDERED: HEPARIN SOD 5,000 UNIT/0.5 ML VIAL SQ SCH (14:00)
--- NOTE | 2019-03-07 15:40 | Ultrasound Report ---
EXAMINATION: PELVIC ULTRASOUND CLINICAL HISTORY: pelvic pain COMPARISON STUDY: May 2008, CT scan dated 03/07/2019 FINDINGS: The uterus measured 6 x 3.7 x 2 cm. The endometrial stripe measured 5 mm. The right ovary was not visualized The left ovary measured 25 x 13 x 11 mm. There was no evidence of pathologic free pelvic fluid. IMPRESSION: 1. Ultrasonographically normal uterus 2. Ultrasonographically normal left ovary 3. Nonvisualization of the right ovary. Electronically signed by: Saad Chambers M.D. 03/07/2019 3:39 PM
--- NOTE | 2019-03-07 18:40 | Discharge Summary ---
Date of Service March 07, 2019 Admission HPI Per Admitting Provider Pt is 63 y/o F with PMH HTN, dyslipidemia, CAD s/p ME and RAMAN to LAD in 2009, lymphedema left leg, anxiety presented to ER with c/o lower abdominal pressure x 3 days. Reports that PCP started on Bactrim 03/04/19 for 3 day course and she finished today. Reports no improvement in lower abdominal/pelvic pressure. Denies any dysuria, hematuria, urinary frequency hesitancy or retention. Denies any vaginal discharge or bleeding. LMP greater than 20 years ago. 03/04/2019 urine culture unremarkable. Denies other abdominal pain, nausea, vomiting. Last night started with anterior chest pressure while standing for awhile at a moravian function. [place] warm at the time. Reports went home and rested and chest pressure decreased but still present. No prior treatment. Denies any shortness of breath, dizziness, syncope, nausea, vomiting, diaphoresis. Pt reports over past several months with intermittent anterior chest pressure episodes but is unsure how often and how long symptoms have occurred or what she is doing when they have happened. She doesn't feel like this CP is similar to when she had her ME. Denies fever/chills, diarrhea, constipation, MILES, syncope, vision changes, neck pain, orthopnea, palpitations, cough, sore throat, choking, otalgia, rhinorrhea, paresthesias, weakness, extremity weakness, extremity edema, rashes. Follows with Dr Yeung - Cardiology H/O negative stress echo in 2011. In ER pt given ASA 324mg and Nitro SL x 1 with relief of chest pressure. Initial troponin negative. Principal Diagnosis Chest pain, Lower abdominal pain, Urinary Tract Infection Discharge Exam Constitutional WD/WN, vitals as above comfortable Eyes PERRL, conjunctivae normal, anicteric sclerae EOM intact bilaterally ENMT external ear and nose normal, oropharynx normal Neck normal visual inspection Respiratory normal respiratory effort, lungs clear to auscultation Cardiovascular RRR, no murmur, no edema Gastrointestinal (Abdomen) normal bowel sounds, soft, nontender, no hepatosplenomegaly Musculoskeletal no cyanosis or clubbing, extremities motor strength 5/5 Head/Neck/Chest: normocephalic and head atraumatic Neurologic PERRL, EOMI, accommodation nl, no face palsy, no dysarthria CN's II-XI intact bilaterally Psychiatric A+Ox3, euthymic affect Discharge Data Allergies Allergy/AdvReac Type Severity Reaction Status Date / Time fluoxetine Allergy Unknown NAUSEA Verified 03/07/19 08:43 venlafaxine Allergy Unknown NAUSEA Verified 03/07/19 08:43 Consultations 03/07/19 10:25 ED Decision to Admit Stat 03/07/19 12:18 Consult Cardiology Routine Ordered Studies 03/07/19 09:07 CT abd pelvis wo con Stat 03/07/19 12:18 US pelvic complete Routine Hospital Course (1) Chest pain: Pt is 63 y/o F with PMH HTN, dyslipidemia, CAD s/p ME and RAMAN to LAD in 2009, lymphedema left leg, anxiety presented with c/o chest pressure last evening. In ER afebrile, P: 50's-80's, R: 18, BP: 123/81, 95% on RA. EKG: sinus bradycardia, rate 58, diffuse t wave inversion (seen on prior EKG 09/2018). Initial troponin negative. In ER given ASA, SL nitro x 1 with reported relief of chest pressure. [facility] cardiology does not assess that patient had ischemic cardiac event troponin negative x 2 no acute telemetry events Echocardiogram performed on 03/07/19. Results are pending (2) Abdominal pain: Reported lower abdominal pain and pelvic pressure x 3 days. No fever/chills. Denies hematuria, dysuria, urinary frequency. Initially treated with Bactrim x 3 days by PCP, finished 03/07/19 without improvement. (3) UTI (urinary tract infection): -Prescription of amoxicillin/clavulanate (500mg/125mg) twice a day for 1 week (known commonly as Augmenti)n was sent electronically to [facility] [address] [place] [id number] which can be started on 03/08/19 -Patient should make appointment with her primary care Dr. Carrillo -admission urine analysis was negative for bacteria but patient was already on bactrim for 3 days. -CT ABD/PELVIS: No evidence of bowel obstruction. No evidence of free air. Normal appendix. No evidence of acute diverticulitis. Right-sided nephrolith iasis. No ureteral or bladder calculi identified. Cholelithiasis. -Pelvic Ultrasound FINDINGS: The uterus measured 6 x 3.7 x 2 cm. The endometrial stripe measured 5 mm. The right ovary was not visualized The left ovary measured 25 x 13 x 11 mm. There was no evidence of pathologic free pelvic fluid. IMPRESSION: 1. Ultrasonographically normal uterus 2. Ultrasonographically normal left ovary 3. Nonvisualization of the right ovary. -Given lack of abdominal or pelvic pathologies on imaging, patient likely needs further antibiotic treatment for previous outpatient diagnosis of urinary tract infection. If patient continues to have pelvic/bladder symptoms then patient should be referred as outpatient for urology versus Gynecology workup for bladder spasms or other etiologies -If patient continues to have pelvic/bladder symptoms then patient should be referred as outpatient for urology versus Gynecology workup for bladder spasms or other etiologies (4) HTN (hypertension): Stable -Continue metoprolol (5) Dyslipidemia: -Continue statin (6) Anxiety: Stable -Continue Klonopin prn Total Time Total Time Spent Total Time Spent (In Minutes): 40 minutes Total Time Includes: Examination of the Patient, Discharge Planning, Medication Reconciliation and Communication With Other Providers Discharge Plan Discharge Items Patient Disposition: Home - Self-Care Reason For Visit: CP Discharge Diagnosis: Chest pain, Lower abdominal pain, Urinary Tract Infection Condition on Discharge: Good Activity: Resume your previous activity Non-emergency contact: Primary Care Provider Call non-emergency contact if: you have any medication questions Follow-up/Referrals: China Carrillo DO [Primary Care Provider] - Diet: Heart Healthy Cheryl Attending Provider Instructions: Prescription of amoxicillin/clavulanate (500mg/125mg) twice a day for 1 week (known commonly as Augmenti)n was sent electronically to [facility] [address] [place] [id number] which can be started on 03/08/19 Patient should make appointment with her primary care Dr. Gerardo Luna Child Care Coordinator Provider Instructions: [facility] cardiology does not assess that patient had ischemic cardiac event troponin negative x 2 no acute telemetry events Echocardiogram performed on 03/07/19. Results are pending admission urine analysis was negative for bacteria but patient was already on bactrim for 3 days. -CT ABD/PELVIS: No evidence of bowel obstruction. No evidence of free air. Normal appendix. No evidence of acute diverticulitis. Right-sided ne phrolithiasis. No ureteral or bladder calculi identified. Cholelithiasis. -Pelvic Ultrasound FINDINGS: The uterus measured 6 x 3.7 x 2 cm. The endometrial stripe measured 5 mm. The right ovary was not visualized The left ovary measured 25 x 13 x 11 mm. There was no evidence of pathologic free pelvic fluid. IMPRESSION: 1. Ultrasonographically normal uterus 2. Ultrasonographically normal left ovary 3. Nonvisualization of the right ovary. Given lack of abdominal pathologies or pelvic on imaging, patient likely needs further antibiotic treatment for previous outpatient diagnosis of urinary tract infection. If patient continues to have pelvic/bladder symptoms then patient should be referred as outpatient for urology versus Gynecology workup for bladder spasms or other etiologies Pending Studies at Discharge: Yes Studies:: Echocardiogram performed on 03/07/19. Results are pending Stand-Alone Forms: [facility] Medications and DC Order Prescriptions: New amoxicillin-pot clavulanate 500-125 mg tablet 1 tab PO BID 7 Days Qty: 14 RF: 0 Continued clonazepam 0.5 mg tablet 0.5 mg PO TID PRN (Reason: Anxiety) Qty: 30 RF: 0 simvastatin 80 mg tablet 80 mg PO QPM RF: 0 aspirin 81 mg Tablet,Delayed Release (Dr/Ec) 81 mg PO DAILY RF: 0 metoprolol tartrate 25 mg tablet 25 mg PO BID RF: 0 Discharge Orders: Discharge Order (Routine); Ordered 03/07/19 Ordered By: Po Joyner Admission Data Admit Date/Time: 03/07/19 11:22 Attending Provider: Po Joyner Admit Provider: Po Joyner Primary Care Provider: China Carrillo Other Providers: Po Joyner ; Saroj Vazquez
[2019-03-07] MEDS ORDERED: METOPROLOL TARTRATE 25 MG TAB PO SCH (21:00)
[2019-03-07] MEDS ORDERED: SIMVASTATIN 80 MG TAB PO SCH (21:00)
--- NOTE | 2019-03-08 07:05 | Emergency Department Note ---
Entered by Kelly Carrasquillo acting as a scribe for Shade Vincent MD History of Present Illness General Chief complaint: Urinary Symptoms Time Seen by Provider: 03/07/19 08:38 Source: patient Mode of arrival: ambulatory Limitations: no limitations History of Present Illness Provider complaint: Chest pain Onset (ago): hour(s) (last night) Location: chest Pain Consistency: + other (episode) Maximum Pain Intensity: 8 Quality: + other (pain) Relieved By: + rest Exacerbated By: + none Associated symptoms: + other (Additional symptoms: bladder pressure, urinary discomfort. Denies: burning urination) The patient is a 63 year old female with a history of an arterial stent, nephrolithiasis, lymphedema, dyslipidemia, hypertension, CAD, anxiety, and an NV who presents to the Emergency Room with complaints of an episode of chest pain occurring last night. The patient reports that she was serving dinner when she suddenly felt hot and thought that she was going to pass out. She states that she subsequently experienced some chest discomfort when she went home. She recalls that it did not worsen with exertion and that it improved with rest. She notes that her chest pain did not feel similar to her past NV and stent placement. She also denies taking any aspirin today. The patient further complains of worsening urinary symptoms starting 3 days ago. The patient reports that she started experiencing bladder pressure 3 days ago but was tested negative for a UTI that day. She states that she was given a 3- day course of Bactrim, which she finished this morning, but she notes that it has not improved her symptoms. She continues to endorse urinary discomfort but denies any burning urination. She reports no chance of . Home Medications Home Medications Medication Instructions Recorded Confirmed Type aspirin 81 mg PO DAILY 09/05/18 03/07/19 History metoprolol tartrate 25 mg PO BID 09/05/18 03/07/19 History simvastatin 80 mg PO QPM 09/05/18 03/07/19 History clonazepam 0.5 mg tablet 0.5 mg PO TID PRN #30 tab 10/23/18 03/07/19 History amoxicillin-pot clavulanate 1 tab PO BID 7 Days #14 tab 03/07/19 Rx Allergies Allergy/AdvReac Type Severity Reaction Status Date / Time fluoxetine Allergy Unknown NAUSEA Verified 03/07/19 08:43 venlafaxine Allergy Unknown NAUSEA Verified 03/07/19 08:43 Past Med/Surg History Medical History Anxiety (Chronic) History of myocardial infarction (Chronic) HTN (hypertension) (Chronic) Presence of stent in artery (Chronic) Nephrolithiasis (Chronic) Lymphedema of left leg (Chronic) Grief reaction (Resolved) Dyslipidemia (Chronic) Arteriosclerotic coronary artery disease (Chronic) Surgical History History of cardiac catheterization (Chronic) RAMAN to LAD, 2009 Family History Other Cancer Coronary heart disease Diabetes Hypertension Social History Preferred Language: Japanese Communication Ability: Effective Hydro Technician Required: No Beliefs That Will Affect Care: None marital status: Current Living Situation: Alone current occupational status: employed Feels Safe at Home: Yes Smoking Status: Never smoker Hx Alcohol Use: Yes Alcohol Intake Frequency: Holidays/Special Occasions Hx Substance Use: No Review of Systems See HPI for pertinent positives & negatives. and A total of 10 systems reviewed and were otherwise negative Physical Exam Vital Signs Vital Signs - 24 hr 03/07/19 08:23 03/07/19 09:19 03/07/19 10:49 Temperature 36.7 C Temperature Source Oral Sepsis Recent Fever Within 48 Hours No Sepsis New/Unexplained Change in Mental Status No Sepsis Action Taken by Nursing No Action Required Pulse Rate 89 Pulse Rate [Apical] 66 Respiratory Rate 18 18 Respiratory Effort / Characteristics Non-Labored Respiratory Depth Normal Normal Respiratory Pattern Regular Blood Pressure 123/81 Blood Pressure [Left Arm] 109/83 Blood Pressure Mean 95 Blood Pressure Mean [Left Arm] 91 Blood Pressure Position Sitting Pulse Oximetry 99 Oxygen Delivery Method Room Air Room Air Room Air 03/07/19 10:51 Temperature Temperature Source Sepsis Recent Fever Within 48 Hours Sepsis New/Unexplained Change in Mental Status Sepsis Action Taken by Nursing Pulse Rate Pulse Rate [Apical] 61 Respiratory Rate 16 Respiratory Effort / Characteristics Respiratory Depth Respiratory Pattern Blood Pressure Blood Pressure [Left Arm] 112/93 Blood Pressure Mean Blood Pressure Mean [Left Arm] 99 Blood Pressure Position Pulse Oximetry Oxygen Delivery Method GENERAL: Awake, alert, well-appearing, in no acute distress HENT: Normocephalic, atraumatic. Oropharynx unremarkable. EYES: Normal conjunctiva. Sclera non-icteric. NECK: Supple. No nuchal rigidity. FROM. No JVD. RESPIRATORY: Clear to auscultation. CARDIAC: Regular rate, normal rhythm. Extremities warm and well perfused. Pulses equal. ABDOMEN: Soft, non-distended. No tenderness to palpation. No rebound or guarding. No masses. RECTAL: Deferred. MUSCULOSKELETAL: Chest examination reveals no tenderness. The back is symmetrical on inspection without obvious abnormality. There is no CVA t enderness to palpation. No joint edema. LOWER EXTREMITIES: Calves are equal size bilaterally and non-tender. No edema. No discoloration. NEURO: Normal sensorium. No sensory or motor deficits noted. SKIN: No rash or jaundice noted. Course 2105: The patient was evaluated in room A9B, and a complete history and physical examination were performed. 1025: I reviewed the patient's case with Lotus Jung PA-C. Dr. [facility] the patient for further management. Consultations Consultation #1: I reviewed the patient's case with Lotus Jung PA-C. Dr. Ar Younger will evaluate the patient for further management. Time: 10:25 Administered Medications Discontinued Medications Aspirin (Aspirin) 324 mg PO NOW STA Stop: 03/07/19 09:11 Last Admin: 03/07/19 09:27 Dose: 324 mg Documented by: [id number] Heparin Sodium (Porcine) (Heparin Sodium (Porcine)) 5,000 units SQ Q8 CRUZITO Stop: 04/06/19 13:59 Last Admin: 03/07/19 13:51 Dose: Not Given Documented by: [id number] Sodium Chloride (Nss 1000ml) 1,000 mls @ 999 mls/hr IV .Q1H1M CRUZITO Stop: 03/07/19 10:15 Last Infusion: 03/07/19 10:43 Dose: 0 mls/hr Documented by: [id number] Admin: 03/07/19 09:27 Dose: 999 mls/hr Documented by: [id number] Ceftriaxone Sodium 1,000 mg/ (Dextrose) 50 mls @ 100 mls/hr IV Q24H CRUZITO; Pro tocol Stop: 03/09/19 13:29 Last Infusion: 03/07/19 14:50 Dose: 0 mls/hr Documented by: [id number] Infusion: 03/07/19 14:09 Dose: 100 mls/hr Documented by: [id number] Infusion: 03/07/19 13:51 Dose: 0 mls/hr Documented by: [id number] Admin: 03/07/19 13:50 Dose: 100 mls/hr Documented by: [id number] Nitroglycerin (Nitrostat) 0.4 mg SL NOW STA Stop: 03/07/19 09:11 Last Admin: 03/07/19 09:27 Dose: 0.4 mg Documented by: [id number] Perflutren Lipid Microsphere (Definity) 2 ml IV ONCE ONE Stop: 03/07/19 14:00 Last Admin: 03/07/19 14:00 Dose: 2 ml Documented by: [id number] Medical Decision Making Differential Diagnosis Differential diagnosis includes: cardiac ischemia, aortic dissection, pulmonary embolism, pneumonia, pneumothorax, musculoskeletal, infections, pericarditis, myocarditis, esophageal rupture, gastrointestinal, as well as others were entertained. Medical Records Attestation: I reviewed the patient's medical records. Home Medications Current Medication List: was personally reviewed by me Laboratory Data Attestation: I reviewed the patient's lab results. Result diagrams: 03/07/19 09:17 03/07/19 09:17 Lab Results 03/07/19 03/07/19 03/07/19 Range/Units 09:17 09:17 09:28 WBC 7.46 (4.8-10.8) K/uL RBC 4.61 (4.2-5.4) M/uL Hgb 14.8 (12.0-16.0) g/dL Hct 43.0 (37-47) % MCV 93.3 (80-100) fL MCH 32.1 (25-34) pg MCHC 34.4 (32-36) g/dL RDW Std Deviation 47.5 H (36.4-46.3) fL RDW Coeff of Ivan 13.8 (11.5-14.5) % Plt Count 282 (130-400) K/uL MPV 10.2 (7.4-10.4) fL Immature Gran % (Auto) 0.1 % Neut % (Auto) 72.8 % Lymph % (Auto) 17.0 % Bent % (Auto) 7.2 % Eos % (Auto) 2.4 % Baso % (Auto) 0.5 % Immature Gran # (Auto) 0.01 (0.00-0.02) K/uL Neut # (Auto) 5.42 (1.4-6.5) K/uL Lymph # (Auto) 1.27 (1.2-3.4) K/uL Bent # (Auto) 0.54 (0.11-0.59) K/uL Eos # (Auto) 0.18 (0-0.5) K/uL Baso # (Auto) 0.04 (0-0.2) K/uL Sodium 138 (136-145) mmol/L Potassium 3.7 (3.5-5.1) mmol/L Chloride 107 (98-107) mmol/L Carbon Dioxide 23 (21-32) mmol/L Anion Gap 8.0 (3-11) BUN 14 (7-18) mg/dl Creatinine 1.11 (0.6-1.2) mg/dl Est Cr Clr Drug Dosing 45.4 ml/min Est GFR ( Amer) 60.4 Est GFR (Non-Af Amer) 52.1 BUN/Creatinine Ratio 12.5 (10-20) Glucose 96 (70-99) mg/dl Calcium 9.7 (8.5-10.1) mg/dl Total Bilirubin 0.4 (0.2-1) mg/dl AST 12 L (15-37) U/L ALT 16 (12-78) U/L Alkaline Phosphatase 91 (45-117) U/L Total Creatine Kinase 83 (26-192) U/L CK-MB (CK-2) 1.2 (0.5-3.6) ng/ml CK/CKMB % Calc 1.4 (0-3.0) Troponin I < 0.015 (0-0.045) ng/ml Total Protein 7.5 (6.4-8.2) gm/dl Albumin 4.1 (3.4-5.0) gm/dl Globulin 3.4 (2.5-4.0) gm/dl Albumin/Globulin Ratio 1.2 (0.9-2) Lipase 89 (73-393) U/L Urine Color Yellow Urine Appearance Clear (Clear) Urine pH 5.5 (4.5-7.5) Ur Specific [place] 1.023 (1.000-1.030) Urine Protein Negative (Negative) Urine Glucose (UA) Negative (Negative) Urine Ketones 1+ H (Negative) Urine Blood Negative (Negative) Urine Nitrite Negative (Negative) Urine Bilirubin Negative (Negative) Urine Urobilinogen Negative (Negative) Ur Leukocyte Esterase Negative (Negative) Imaging Data Radiologist's Impression: Radiology results as stated below per my review and the radiologist's interpretation: CT SCAN OF THE ABDOMEN AND PELVIS WITHOUT CONTRAST CLINICAL HISTORY: Diffuse abdominal pain COMPARISON STUDY: July 05, 2017 TECHNIQUE: CT scan of the abdomen and pelvis was performed from the lung bases to the proximal femurs. Images are reviewed in the axial, sagittal, and coronal planes. IV contrast was not administered for this examination. A dose lowering technique was utilized adhering to the principles of ALARA. CT DOSE: 444.41 mGy.cm FINDINGS: Lower chest: The heart is normal in size and configuration, without pericardial effusion. The lung bases and pleural spaces are clear. Liver: The unenhanced liver is normal in size, contour, and attenuation. There is no intrahepatic biliary ductal dilatation. Gallbladder: Cholelithiasis Spleen: Normal in size and attenuation. Pancreas: Unremarkable. Adrenal glands: Unremarkable. Kidneys: 3 right renal calculi are visualized. There is minimal fullness the right renal collecting system. There is no ureteral dilatation. No ureteral calculi are visualized. Bowel: There are no transition zones indicate bowel obstruction. There is no evidence of acute diverticulitis. The appendix appears normal. Peritoneum: There is no intraperitoneal free air or abdominal ascites. Vasculature: The abdominal aorta is normal in course and caliber. Adenopathy: None. Pelvic viscera: The bladder, and pelvic viscera are unremarkable. Skeletal structures: Postsurgical changes are present within the lumbar spine. IMPRESSION: 1. No evidence of bowel obstruction. No evidence of free air 2. Normal appendix. No evidence of acute diverticulitis 3. Right-sided nephrolithiasis. No ureteral or bladder calculi identified 4. Cholelithiasis. Electronically signed by: Saad Chambers M.D. 03/07/2019 10:10 AM XR chest 1V portable CLINICAL HISTORY: Atypical chest pain COMPARISON STUDY: 09/05/2018 FINDINGS: The cardiac and mediastinal contours are normal. There is no evidence of focal pulmonary consolidation. There is no evidence of failure. No pleural effusions are visualized.[No pneumothorax is visualized. IMPRESSION: No active disease in the chest. Electronically signed by: Saad Chambers M.D. 03/07/2019 9:42 AM ECG Data Attestation: I personally reviewed and interpreted this ECG as follows: Indication: chest pain Rate (beats per minute): 58 Rhythm: sinus bradycardia Findings: + other (old anterior infarct); no ST depression and no ST elevation Blood Pressure Blood Pressure Findings: Normal blood pressure MDM Narrative This is a 63-year-old female who presents emergency department complaining of urinary symptoms as well as chest pain. Patient does have a history of stents. She was given nitro as well as aspirin here in the emergency department. The patient's nitro took her pain away. She was sent for CAT scan of the abdomen pelvis. I will note that the patient has normal CBC normal renal profile normal liver profile normal lipase. CAT scan does not show any acute process. Because of the patient's past medical history as well as her chest pain being relieved by nitro I did discuss the case with the hospitalist service who agreed to admit the patient. Patient was in agreement with the treatment plan. Impression & Plan Vasovagal episode, Chest pain Discharge Plan Visit Data *Final* Discharge Date/Time: 03/07/19 11:58 Chief Complaint: Urinary Symptoms ED Provider: Shade Vincent Discharge Problem: Vasovagal episode, Chest pain Patient Disposition: Admitted As Inpatient Condition: Good Discharge Instructions Interventions: ED Discharge Assessment Last Done: 03/07/19 11:58 Discharge Problem: Chest pain Qualifiers: Chest pain type: unspecified Qualified Code(s): R07.9 - Chest pain, unspecified The scribe's documentation has been prepared under my direction and personally reviewed by me in its entirety. I confirm that the note above accurately reflects all work, treatment, procedures, and medical decision making performed by me.
[2019-03-08] MEDS ORDERED: ASPIRIN 81 MG ECTAB PO SCH (09:00)
--- NOTE | 2019-03-24 16:00 | Coding Letter ---
A supporting diagnosis is required for the test/procedure performed on this patient in order for us to be reimbursed by the patient's insurance. Please provide a supporting diagnosis for the following test/procedure listed below next to the test name along with your signature. *If there is no additional diagnosis for this patient that would support the following test/procedure please document that below next to the test/procedure. Test(s)/Procedure(s) that require a supporting diagnosis: Perflutren Lipid Microsphere DIAGNOSIS: Provider Signature: Date: Thank you Myrna Calero Health Information Management Once completed, please kindly fax back to [phone] For questions please call [phone] TABITHA
--- NOTE | 2019-03-24 16:02 | Coding Query ---
A supporting diagnosis is required for the test/procedure performed on this patient in order for us to be reimbursed by the patient's insurance. Please provide a supporting diagnosis for the following test/procedure listed below next to the test name along with your signature. *If there is no additional diagnosis for this patient that would support the following test/procedure please document that below next to the test/procedure. Test(s)/Procedure(s) that require a supporting diagnosis: Perflutren Lipid Microsphere DIAGNOSIS: Chest Pain (this was used as an ultrasound contrast for echocardiogram) Provider Signature: Po Joyner Date: __03/24/19 Thank you Myrna Calero [facility] Information Management Once completed, please kindly fax back to [phone] For questions please call [phone] [facility]ENTER[facility]gar
== END 2019-03-07 19:35 | disposition home or self-care (01) ==
LOC: 2N 08:18 → ED 08:18 → 2N 11:58

== ENCOUNTER 2020-03-16 16:41 | Inpatient (IN) ==
[2020-03-16] MEDS ORDERED: SODIUM CHLORIDE 0.9% 1000ML 1,000 ML IV ONE (17:34)
[2020-03-16] MEDS ORDERED: KETOROLAC TROMETHAMINE 15 MG/ML VIAL IV ONE (17:34)
[2020-03-16 18:03] LABS: Appearance Urine Clear (Clear); Bacteria Urine Automated Negative (Negative); Bilirubin Urine Negative (Negative); Blood Urine 1+ (Negative); Color Urine Yellow; Epithelial Cell Urine Auto 20-30 /lpf (0-5); Glucose Urine UA Negative (Negative); Ketones Urine 1+ (Negative); Leukocyte Esterase Urine Trace (Negative); Nitrite Urine Negative (Negative); Protein Urine Negative (Negative); RBC Urine Automated 0-4 /hpf (0-4); Specific Gravity Urine 1.012 (1.000-1.030); Urobilinogen Urine Negative (Negative)
[2020-03-16 18:10] LABS: Basophils # (auto) 0.02 K/uL (0-0.2); Basophils % (auto) 0.2 %; Eosinophils # (auto) 0.15 K/uL (0-0.5); Eosinophils % (auto) 1.6 %; Hematocrit (blood only) 41.9 % (37-47); Hemoglobin 13.8 g/dL (12.0-16.0); Immature Granulocytes # (auto) 0.02 K/uL (0.00-0.02); Immature Granulocytes % (auto) 0.2 %; Lymphocytes # (auto) 1.35 K/uL (1.2-3.4); Lymphocytes % (auto) 14.5 %; Mean Corpuscular Hemoglobin 31.3 pg (25-34); Mean Corpuscular Hgb Conc 32.9 g/dL (32-36); Mean Platelet Volume 10.4 fL (7.4-10.4); Monocytes # (auto) 0.82 K/uL (0.11-0.59); Monocytes % (auto) 8.8 %; Neutrophils # (auto) 6.92 K/uL (1.4-6.5); Neutrophils % (auto) 74.7 %; Platelet Count 264 K/uL (130-400); RDW Coefficient of Variation 13.4 % (11.5-14.5); Red Blood Count 4.41 M/uL (4.2-5.4); White Blood Count 9.28 K/uL (4.8-10.8)
[2020-03-16 18:36] LABS: Albumin Globulin Ratio 1.1 (0.9-2); Albumin Level 3.8 gm/dl (3.4-5.0); BUN Creatinine Ratio 8.8 (10-20); Bilirubin,Total 0.9 mg/dl (0.2-1); Calcium 9.8 mg/dl (8.5-10.1); Creatinine Clr Calc Pharmacy 33.1 ml/min; Est GFR (Non-African American) 35.4; Globulin 3.5 gm/dl (2.5-4.0); Potassium 3.6 mmol/L (3.5-5.1); Total Protein 7.3 gm/dl (6.4-8.2)
[2020-03-16] MEDS ORDERED: cefTRIAXone SODIUM 1,000 MG/50 ML BAG IV STA (19:15)
[2020-03-16] MEDS ORDERED: MoRPHine SULFATE 4 MG/ML 1 ML CARP\\VIAL IV STA (19:15)
[2020-03-16] MEDS ORDERED: ONDANSETRON INJ 2 MG/ML 2 ML VIAL IV STA (19:15)
--- NOTE | 2020-03-16 19:21 | Emergency Department Note ---
Impression & Plan Renal colic, Hydroureter, Acute flank pain, Hematuria ED Provider Note NAME: DAILY LOPEZ AGE: 64 SEX: F : 1955 ARRIVES VIA: Walk-In INFORMANT: Patient ED PROVIDER(S): Steven Hyatt DO CHIEF COMPLAINT: Right flank pain HPI: Patient is a 64-year-old female who presents the ER for right flank pain. Symptoms started yesterday morning when she woke up. She had some diarrhea and nausea. Pain has been worsening. It radiated around to her right lower q uadrant. Does have a history of kidney stones back in about 2018. During that time she had a lithotripsy. She denies any fevers. No headache change in vision. No chest pain or shortness of breath. No vomiting. Denies any dysuria urgency or frequency. Does have a mild dull ache in the right back but the majority of the pain is in the right flank. ROS: See above HPI for pertinent positives & negatives. A total of 10 systems reviewed and were otherwise negative. PAST MEDICAL HISTORY:See Below PAST SURGICAL HISTORY:See Below FAMILY HISTORY:See Below SOCIAL HISTORY:See Below HOME MEDICATIONS:See Below ALLERGIES:See Below VITALS:See Below PHYSICAL EXAMINATION: GENERAL: Sitting up in bed, alert, well appearing, well nourished, no distress, non-toxic EYE EXAM: normal conjunctiva. OROPHARYNX: no exudate, no erythema, lips, buccal mucosa, and tongue normal and mucous membranes are moist NECK: supple, no nuchal rigidity, no adenopathy, non-tender LUNGS: Clear to auscultation. Normal chest wall mechanics HEART: no murmurs, S1 normal and S2 normal ABDOMEN: abdomen soft, non-tender, normo-active bowel sounds, no masses, no rebound or guarding. BACK: Back is symmetrical on inspection and there is no deformity, no midline tenderness, no CVA tenderness. UPPER EXTREMITIES: upper extremities are grossly normal. LOWER EXTREMITIES: No pitting edema. NEURO EXAM: Normal sensorium, cranial nerves II-XII grossly intact, normal speech, no gross weakness of arms, no gross weakness of legs. MEDICAL DECISION MAKING: Patient is a 64-year-old female who presents the ER for right flank pain. She had a CT performed as an outpatient which showed a 2 mm obstructing stone at the right distal ureter with right-sided hydroureteronephrosis. Also showed right renal perinephric infiltration with no drainable collection. IV was established blood work was obtained. Labs showed no significant leukocytosis or anemia. BMP was unremarkable with exception of creatinine 1.5 up from baseline of 1. LFTs bilirubin was unremarkable. UA with +1 ketones, blood and leukocytes with epithelial cells. There is only 1-5 white cells. Discussed the surrounding perinephric infiltration/CT read with Dr. Lundberg from urology. He notes that the patient is comfortable enough she could go home but she also could come in with IV antibiotics and he felt both treatments would be reasonable. With this discussed with the hospitalist for further evaluation after prolonged conversation with the patient she would prefer to stay at this point. Was also given IV Zofran and morphine. Triage Nursing notes reviewed. Prior medical records reviewed Vital Signs: reviewed and remarkable for no significant abnormalities Differential diagnosis: Differential diagnoses includes but is not limited to gastritis, peptic ulcer disease, GERD, gallbladder disease, pancreatitis, small bowel obstruction, acute coronary syndrome, pericarditis, ischemic bowel, irritable bowel disease, irritable bowel syndrome, appendicitis, diverticulitis, malignancy, hernia, urinary tract infection, torsion, perforation, trauma, infectious. ER treatment provided: See below Diagnostics interpreted by me: ECG: none Cardiac Monitoring: An order was placed for continuous cardiac monitoring. The monitor shows a rate of 68 with sinus rhythm. Laboratory studies: As stated above and show below. Imaging studies: [facility] was [facility]. Was unable to see the images but reviewed the impre ssion with right renal perinephric infiltration without drainable collection. Obstructing 2 mm calculus in distal right ureter resulting in hydroureter Consultation(s): Discussed with Angel Lundberg listed above in the HPI. Discussed with hospitalist Dr. Zuñiga for further evaluation ED COURSE: Procedures: none Critical Care: None Past Med/Surg History Medical History (Updated 03/16/20 @ 19:34 by Steven Hyatt DO) Anxiety Arteriosclerotic coronary artery disease Dyslipidemia Grief reaction History of myocardial infarction HTN (hypertension) Lymphedema of left leg Nephrolithiasis Presence of stent in artery Surgical History (Updated 03/07/19 @ 13:14 by Radha Johnson PA-C) History of cardiac catheterization RAMAN to 2009 Family History (Updated 03/07/19 @ 13:15 by Radha Johnson PA-C) Other Cancer Coronary heart disease Diabetes Hypertension Social History (Updated 03/07/19 @ 13:14 by Radha Johnson PA-C) Smoking Status: Never smoker Hx Alcohol Use: Yes Hx Substance Use: No Preferred Language: Egyptian Communication Ability: Effective Bed Spring Maker Required: No Beliefs That Will Affect Care: None marital status: Current Living Situation: Alone current occupational status: employed Feels Safe at Home: Yes Assistive Devices: Glasses Allergies Allergies Allergy/AdvReac Type Severity Reaction Status Date / Time fluoxetine Allergy Unknown NAUSEA Verified 03/16/20 18:49 venlafaxine Allergy Unknown NAUSEA Verified 03/16/20 18:49 Home Meds Home Medications Medication Instructions Recorded Confirmed aspirin 81 mg PO QAM 09/05/18 03/16/20 clonazepam 0.5 mg tablet 0.25 - 0.5 mg PO TID PRN #30 tab 10/23/18 03/16/20 ibuprofen 200 mg PO Q6H PRN 03/16/20 03/16/20 Previous Rx's Medication Instructions Recorded simvastatin 80 mg tablet 80 mg PO QPM #90 tab 07/29/19 metoprolol tartrate 25 mg tablet 25 mg PO BID #180 tab 12/08/19 Results & Data (ED) Vital Signs Vital Signs - 24 hr 03/16/20 16:51 Temperature 36.8 C Temperature Source Oral Pulse Rate 69 Respiratory Rate 18 Respiratory Effort / Characteristics Non-Labored Spontaneous Respiratory Depth Normal Respiratory Pattern Regular Blood Pressure 139/71 Blood Pressure Mean 93 Blood Pressure Position Sitting Pulse Oximetry 98 Oxygen Delivery Method Room Air Sepsis Recent Fever Within 48 Hours No Sepsis New/Unexplained Change in Mental Status N/A Sepsis Action Taken by Nursing No Action Required Laboratory Data Result diagrams: 03/16/20 17:50 03/16/20 17:50 Lab Results 03/16/20 03/16/20 03/16/20 Range/Units 17:47 17:50 17:50 WBC 9.28 (4.8-10.8) K/uL RBC 4.41 (4.2-5.4) M/uL Hgb 13.8 (12.0-16.0) g/dL Hct 41.9 (37-47) % MCV 95.0 (80-100) fL MCH 31.3 (25-34) pg MCHC 32.9 (32-36) g/dL RDW Std Deviation 47.0 H (36.4-46.3) fL RDW Coeff of Ivan 13.4 (11.5-14.5) % Plt Count 264 (130-400) K/uL MPV 10.4 (7.4-10.4) fL Immature Gran % (Auto) 0.2 % Neut % (Auto) 74.7 % Lymph % (Auto) 14.5 % [place] % (Auto) 8.8 % Eos % (Auto) 1.6 % Baso % (Auto) 0.2 % Neut # (Auto) 6.92 H (1.4-6.5) K/uL Lymph # (Auto) 1.35 (1.2-3.4) K/uL [place] # (Auto) 0.82 H (0.11-0.59) K/uL Eos # (Auto) 0.15 (0-0.5) K/uL Baso # (Auto) 0.02 (0-0.2) K/uL Immature Gran # (Auto) 0.02 (0.00-0.02) K/uL Sodium 139 (136-145) mmol/L Potassium 3.6 (3.5-5.1) mmol/L Chloride 106 (98-107) mmol/L Carbon Dioxide 27 (21-32) mmol/L Anion Gap 6.0 (3-11) BUN 13 (7-18) mg/dl Creatinine 1.52 H (0.6-1.2) mg/dl Est Cr Clr Drug Dosing 33.1 ml/min Est GFR ( Amer) 41.0 Est GFR (Non-Af Amer) 35.4 BUN/Creatinine Ratio 8.8 L (10-20) Glucose 89 (70-99) mg/dl Calcium 9.8 (8.5-10.1) mg/dl Total Bilirubin 0.9 (0.2-1) mg/dl AST 15 (15-37) U/L ALT 17 (12-78) U/L Alkaline Phosphatase 98 (45-117) U/L Total Protein 7.3 (6.4-8.2) gm/dl Albumin 3.8 (3.4-5.0) gm/dl Globulin 3.5 (2.5-4.0) gm/dl Albumin/Globulin Ratio 1.1 (0.9-2) Lipase 101 (73-393) U/L Urine Color Yellow Urine Appearance Clear (Clear) Urine pH 5.0 (4.5-7.5) Ur Specific Speculator 1.012 (1.000-1.030) Urine Protein Negative (Negative) Urine Glucose (UA) Negative (Negative) Urine Ketones 1+ H (Negative) Urine Blood 1+ H (Negative) Urine Nitrite Negative (Negative) Urine Bilirubin Negative (Negative) Urine Urobilinogen Negative (Negative) Ur Leukocyte Esterase Trace H (Negative) Urine WBC (Auto) 1-5 (0-5) /hpf Urine RBC (Auto) 0-4 (0-4) /hpf U Hyaline Cast (Auto) 1-5 (0-5) /lpf U Epithel Cells (Auto) 20-30 H (0-5) /lpf Urine Bacteria (Auto) Negative (Negative) Administered Medications Ceftriaxone Sodium (Rocephin) 1,000 mg in 50 mls @ 100 mls/hr IV NOW STA Stop: 03/16/20 19:44 Last Admin: 03/16/20 19:31 Dose: 100 mls/hr Documented by: [id number] Discontinued Medications Sodium Chloride (Nss 1000ml) 1,000 mls @ 999 mls/hr IV .Q1H1M ONE Stop: 03/16/20 18:34 Last Infusion: 03/16/20 19:25 Dose: 0 mls/hr Documented by: [id number] Infusion: 03/16/20 18:48 Dose: 999 mls/hr Documented by: [id number] Admin: 03/16/20 18:02 Dose: 999 mls/hr Documented by: [id number] Ketorolac Tromethamine (Ketorolac Tromethamine 15 Mg/Ml Vial) 15 mg IV NOW ONE Stop: 03/16/20 17:35 Last Admin: 03/16/20 18:00 Dose: 15 mg Documented by: [id number] Morphine Sulfate (Morphine Sulfate 4 Mg/Ml 1 Ml Carp\Vial) 4 mg IV NOW STA Stop: 03/16/20 19:16 Last Admin: 03/16/20 19:30 Dose: 4 mg Documented by: [id number] Ondansetron HCl (Ondansetron Inj 2 Mg/Ml 2 Ml Vial) 4 mg IV NOW STA Stop: 03/16/20 19:16 Last Admin: 03/16/20 19:31 Dose: 4 mg Documented by: [id number] Discharge Plan Visit Data Chief Complaint: Kidney Stone Stated Complaint: KIDNEY STONE BLOCKAGE, KIDNEY INFECTION ED Provider: Steven Hyatt Discharge Problem: Renal colic, Hydroureter, Acute flank pain, Hematuria Forms Stand Alone Forms: [facility] [employer] Prescriptions Prescriptions: No Action simvastatin 80 mg tablet 80 mg PO QPM Qty: 90 RF: 3 metoprolol tartrate 25 mg tablet 25 mg PO BID Qty: 180 RF: 3 clonazepam 0.5 mg tablet 0.25 - 0.5 mg PO TID PRN (Reason: Anxiety) Qty: 30 RF: 0 aspirin 81 mg Tablet,Delayed Release (Dr/Ec) 81 mg PO QAM RF: 0 ibuprofen 200 mg Tablet 200 mg PO Q6H PRN (Reason: Pain) RF: 0 Discharge Problem: Hematuria Qualifiers: Hematuria type: unspecified type Qualified Code(s): R31.9 - Hematuria, unspecified
[2020-03-16] MEDS ORDERED: MoRPHine SULFATE 4 MG/ML 1 ML CARP\\VIAL IV PRN (21:28)
[2020-03-16] MEDS ORDERED: ACETAMINOPHEN 325 MG TAB PO PRN (21:28)
[2020-03-16] MEDS ORDERED: clonazePAM 0.5 MG TAB PO PRN (21:28)
[2020-03-16] MEDS ORDERED: POLYETHYLENE (MIRALAX) 17 GM PACK PO PRN (21:28)
[2020-03-16] MEDS ORDERED: ONDANSETRON INJ 2 MG/ML 2 ML VIAL IV PRN (21:28)
[2020-03-16] MEDS: SODIUM CHLORIDE 0.9% 1000ML 1,000 ML IV SCH (21:48)
--- NOTE | 2020-03-16 22:16 | History and Physical Report ---
DATE OF ADMISSION: 03/16/2020 CHIEF COMPLAINT: Right renal colic. HISTORY OF PRESENT ILLNESS: This is a 64-year-old female with past medical history significant for CAD, status post drug-eluting stent to LAD in 2009, history of chronic lymphedema in the left leg, anxiety, hypertension, hyperlipidemia, she states she had a kidney stone around 2018, presents with severe right flank pain since yesterday morning. Yesterday the pain was very severe that she could not even take her dog to the walk. In the nighttime, she could lie only in one position on the back side, but in the middle of the night, she thinks the stone might have moved and she could be able to walk a little . but again today the pain was coming back and she went to see her PCP where the imaging studies were done, which showed an obstructing 2 mm calculus in the distal right ureter resulting in mild upstream hydroureteronephrosis and right renal perinephric infiltration without drainable collection and was advised to come to the ER. In the ER, patient received Toradol, morphine, Rocephin and fluids, and she is feeling better. The pain is improved. Currently resting comfortably and hemodynamically stable. Because there is a possibility of infection, the patient is getting admitted to be seen by urology in the a.m. She has had some headache for the last couple of days, she was a little dizzy today because she did not eat anything today. She was nauseous yesterday, but it got resolved. No blurred visions. No earache, no runny nose, no sore throat, no dysphagia, no chest pain, no shortness of breath, no cough, no fever, felt chills but blankets feeling better. No burning micturition, no hematuria. Normal bowel movements. Chronic lymphedema in the left leg, ambulates okay. ALLERGIES: FLUOXETINE, VENLAFAXINE. PAST MEDICAL HISTORY: As mentioned above. PAST SURGICAL HISTORY:Right breast biopsy, colonoscopy, cystoscopy, EGDs, ligation of oviducts, lumbar hemilaminectomy, excision of vaginal cyst, repair of left rotator cuff, right shoulder arthroscopy, upper GI endoscopy. MEDICATIONS: The patient is on aspirin 81 mg p.o. daily, Lopressor 25 mg p.o. b.i.d., Klonopin 0.25-0.5 mg p.o. t.i.d. p.r.n., simvastatin 80 mg p.o. daily. FAMILY HISTORY: Significant for father had leukemia. Mother had diabetes and heart disorder. Sister has skin cancer, diabetes. SOCIAL HISTORY: 3 years ago. Currently lives alone, but family is close by. No smoking. Alcohol rarely. No drug use. REVIEW OF SYMPTOMS: As per HPI. Rest of review of symptoms negative. PHYSICAL EXAMINATION: GENERAL: The patient is of moderate build, not in acute distress. VITAL SIGNS: Temperature 36.8, pulse 60, respiratory rate 18, blood pressure 147/63, oxygen 100% on room air. HEENT: Pupils equal, round, reactive to light. Oral mucosa moist. NECK: Supple, no neck masses seen. CARDIOVASCULAR: S1, S2 heard, regular rate and rhythm, no murmur, no gallop. RESPIRATORY SYSTEM: Normal AP diameter. No accessory muscle use. No wheezing, no crackles. ABDOMEN: Soft, bowel sounds present, nontender. No distention, no CVA tenderness present, no guarding, no rigidity. CENTRAL NERVOUS SYSTEM: Cranial nerves II-XII grossly intact. Nonfocal. EXTREMITIES: Left lower extremity chronic lymphedema present, no erythema seen. LABORATORY DATA: WBC 9.2, hemoglobin 13.8, hematocrit 41.9, platelets 264. Sodium 139, potassium 3.6, chloride 106, bicarbonate 27, BUN 13, creatinine 1.5, serum glucose 89, calcium 9.8, total bilirubin 0.9, AST 15, ALT 17, alkaline phosphatase 98, lipase 101. Urinalysis, +1 ketone, +1 blood. ASSESSMENT AND PLAN: This is a 64-year-old female who presents with right renal colic. 1. Right renal colic. Pain started yesterday. She has a history of kidney stones in the past around 2018. CAT scan imaging study as an outpatient shows an obstructing 2 mm calculus in the distal right ureter resulting in mild upstream hydroureteronephrosis, right renal perinephric infiltration without drainable collection, possible pyelonephritis. No leukocytosis, no fever. UA is unremarkable here, but we will empirically start on IV Rocephin, pain control, IV fluids, n.p.o. after midnight, IV antiemetics. Consult urology in the a.m. for further recommendations. 2. History of coronary artery disease status post stent. Continue her home aspirin, statin and beta-kannan. Currently stable. 3. Anxiety, continue Klonopin p.r.n. 4. Deep venous thrombosis prophylaxis, sequential compression devices for now. DISPOSITION: Admit to medical floor. Expect to discharge home and follow with her family doctor. TABITHA
[2020-03-16] MEDS: SIMVASTATIN 80 MG TAB PO SCH (22:47)
[2020-03-16] MEDS: METOPROLOL TARTRATE 25 MG TAB PO SCH (22:50)
[2020-03-17] MEDS: SODIUM CHLORIDE 0.9% 1000ML 1,000 ML IV SCH ×2 (05:45→13:56)
[2020-03-17 06:11] LABS: Basophils # (auto) 0.03 K/uL (0-0.2); Basophils % (auto) 0.4 %; Eosinophils # (auto) 0.42 K/uL (0-0.5); Eosinophils % (auto) 5.2 %; Hematocrit (blood only) 35.8 % (37-47); Hemoglobin 11.6 g/dL (12.0-16.0); Immature Granulocytes # (auto) 0.01 K/uL (0.00-0.02); Immature Granulocytes % (auto) 0.1 %; Lymphocytes # (auto) 1.23 K/uL (1.2-3.4); Lymphocytes % (auto) 15.3 %; Mean Corpuscular Hemoglobin 31.5 pg (25-34); Mean Corpuscular Hgb Conc 32.4 g/dL (32-36); Mean Corpuscular Volume 97.3 fL (80-100); Monocytes % (auto) 12.4 %; Neutrophils # (auto) 5.37 K/uL (1.4-6.5); Neutrophils % (auto) 66.6 %; Platelet Count 228 K/uL (130-400); RDW Coefficient of Variation 13.7 % (11.5-14.5); RDW Standard Deviation 49.2 fL (36.4-46.3); Red Blood Count 3.68 M/uL (4.2-5.4); White Blood Count 8.06 K/uL (4.8-10.8)
[2020-03-17 06:41] LABS: BUN Creatinine Ratio 10.8 (10-20); Calcium 8.2 mg/dl (8.5-10.1); Creatinine Clr Calc Pharmacy 36.1 ml/min; Est GFR (African American) 44.5; Est GFR (Non-African American) 38.4; Potassium 4.1 mmol/L (3.5-5.1)
[2020-03-17] MEDS: ASPIRIN 81 MG ECTAB PO SCH (08:22)
[2020-03-17] MEDS: METOPROLOL TARTRATE 25 MG TAB PO SCH ×2 (08:22→20:35)
[2020-03-17] MEDS: TAMSULOSIN HCL 0.4 MG CAP PO SCH (08:22)
--- NOTE | 2020-03-17 08:45 | Urology Consultation ---
Date of Consultation March 17, 2020 Assessment & Plan (1) Acute flank pain: (2) Left ureteral stone: 64 yo F admitted for right distal ureteral stone and hydronephrosis. - Patient feeling better this morning, pain managed with Tylenol - Afebrile, nontoxic, no leukocytosis, creatinine improved this morning - Discussed options for stone management including surgical intervention vs trial of passage with supportive care - Check KUB for stone visualization and location - right ureteral stone not visualized - Discussed KUB results with patient - She elects observation and trial of passage for now - Recommend continue antibiotics, hydration, Tamsulosin, pain management and supportive care - Make NPO at [facility] and reassess in AM - Please consult our service urgently if patient develops fever >101F, intractable pain or nausea, as this will necessitate urgent surgical intervention. Thank you for the consultation and we will continue to monitor closely with primary service. History of Present Illness Reason for Consultation: Right renal colic Requesting Physician: Dr. Varma Attending Physician: Francisca Lewis MD History of Present Illness 64 yo F admitted for right distal ureteral stone and hydronephrosis. PMHx of CAD, nephrolithiasis, HTN, VA, cardiac stent, anxiety, and dyslipidemia. Patient known to our service, previously evaluated in our clinic for nephrolithiasis in 2018. Pt presented to [facility] ED on 03/16/20 with left flank pain radiating to her abdomen with associated nausea and diarrhea. She was evaluated as an outpatient and underwent CT A/P. Per chart review, the CT report demonstrated a 2 mm obstructing stone at the right distal ureter with right- sided hydroureteronephrosis. Also showed right renal perinephric infiltration with no drainable collection. She was afebrile. Lab work on arrival: creatinine 1.52, WBC 9.28, Hgb 13.8. UA trace leuks, 20-30 epithelials, 1+ blood, 0-4 RBCs. No urine culture collected. She was admitted for pain management and further management. We are consulted for right renal colic. Chart review: Afebrile Creatinine - 1.42 WBC - 8.06 Hgb - 11.6 On IV Ceftriaxone Pt examined at bedside this AM. Appears comfortable. Awake, laying in bed. Reports feeling better this morning. Pain improved. Utilized PO Tylenol this AM with relief. No flank or abdominal pain. No nausea or vomiting. No fever or chills. No dysuria or hematuria. Voiding spontaneously without difficulty. She denies stone passage. No additional concerns. Allergies Allergy/AdvReac Type Severity Reaction Status Date / Time fluoxetine Allergy Unknown NAUSEA Verified 03/16/20 18:49 venlafaxine Allergy Unknown NAUSEA Verified 03/16/20 18:49 Home Medications Home Medications Medication Instructions Recorded Confirmed Type aspirin 81 mg PO QAM 09/05/18 03/16/20 History clonazepam 0.5 mg tablet 0.25 - 0.5 mg PO TID PRN #30 tab 10/23/18 03/16/20 History simvastatin 80 mg tablet 80 mg PO QPM #90 tab 07/29/19 03/16/20 Rx metoprolol tartrate 25 mg tablet 25 mg PO BID #180 tab 12/08/19 03/16/20 Rx ibuprofen 200 mg PO Q6H PRN 03/16/20 03/16/20 History Patient History Medical History Anxiety Arteriosclerotic coronary artery disease Dyslipidemia Grief reaction History of myocardial infarction HTN (hypertension) Lymphedema of left leg Nephrolithiasis Presence of stent in artery Surgical History History of cardiac catheterization RAMAN to LAD, 2009 Family History Other Cancer Coronary heart disease Diabetes Hypertension Social History Smoking Status: Never smoker Hx Alcohol Use: Yes Alcohol type: wine Hx Substance Use: No Preferred Language: Central African Communication Ability: Effective Bagel Maker Required: No Beliefs That Will Affect Care: None marital status: Current Living Situation: Alone current occupational status: employed Other Information That Helps Us Care for You: No Feels Safe at Home: Yes Safety Concerns: Feels Safe At This Time Assistive Devices: Glasses Review of Systems Constitutional: as per Subjective / HPI Gastrointestinal: as per Subjective / HPI Genitourinary: as per Subjective / HPI Physical Exam Constitutional: well developed and well nourished; no acute distress and not ill appearing Respiratory: normal respiratory effort and able to speak in complete sentences; no respiratory distress and no labored breathing Cardiovascular: Extremities: no pedal edema Gastrointestinal (Abdomen): Inspection/Auscultation: abdomen normal to inspection; abdomen not distended Percussion/Palpation: abdomen soft; abdomen nontender Musculoskeletal: Head/Neck/Chest: normocephalic and head atraumatic Extremities: extremities normal to inspection Skin: no rashes, warm and dry Neurologic: moves all extremities and awake Psychiatric: A+Ox3, euthymic affect Genitourinary: no CVA tenderness Results & Data ([facility]) Vital Signs (Past 12 Hours) Vital Signs Temp Pulse Resp BP Pulse Ox 03/17/20 08:17 58 L 100/63 98 03/17/20 07:32 36.7 C 63 18 104/64 98 03/16/20 23:45 36.7 C 59 L 16 115/69 99 03/16/20 22:45 57 L 131/69 03/16/20 21:44 36.7 C 59 L 16 145/75 H 100 PG Care Time/CCT Total # of Minutes Spent Total Time Spent with Patient: Total time spent is greater than 50% in coordination of care (as documented) at patient's floor/unit and/or counseling patient: Coding Level of Care Code 67167 Inpt Consult Level 4 Diagnoses Acute flank pain R10.9 Left ureteral stone N20.1
--- NOTE | 2020-03-17 09:52 | XRay Report ---
KUB HISTORY: Follow up study in a patient with right ureteral calculus right distal ureteral stone COMPARISON: CT abdomen and pelvis 03/07/2019 FINDINGS: The bowel gas pattern is non-obstructive. There is no organomegaly. Renal shadows are part ially obscured by bowel gas. Right renal calculi are again noted measuring up to 4 mm. Vascular calci fications of the pelvis. No definite ureteral calculi identified. No pneumoperitoneum or pneumatosis. Posterior interbody carlotta and screw fusion at L5-S1. Moderate L4-L5 disc space narrowing. No fracture. IMPRESSION: Right nephrolithiasis without ureteral calculi identified. ACT 112: Negative or not required by law. The above report was generated using voice recognition software. It may contain grammatical, syntax o r spelling errors. Electronically signed by: Yosvany Tang M.D. 03/17/2020 9:51 AM
[2020-03-17] MEDS ORDERED: cefTRIAXone SODIUM 1,000 MG in DEXTROSE 5% 50 ML IV SCH (18:00)
--- NOTE | 2020-03-17 19:32 | Hospitalist Progress Note ---
Date of Service March 17, 2020 Assessment & Plan (1) Renal colic: admitted with acute right sided flank pain out pt CT abdomen showed : an obstructing 2 mm calculus in the distal right ureter resulting in mild upstream hydroureteronephrosis and right renal perinephric infiltration without urology eval appreciated KUB shows non visualization of rt ureteric stone -plan was to cont IV fluid , pain control , flomax re evaluate in am if pt continues to have symptoms , later in evening ,pt passed the ureteric stone spontaneously sample sent to lab for stone analysis observe over night plan to dc home in am after urology eval Acute renal failure on CKD stage 3 : due to above given IVF repeat BMP in am Admission and Anticipated Discharge Date Admission Date: March 16, 2020 Subjective able to pass stone spontaneously in evening no complain of flank pain no fever or chills Physical Exam 2 Constitutional: WD/WN, vitals as above Eyes: PERRL, conjunctivae normal, anicteric sclerae ENMT: external ear and nose normal, oropharynx normal Neck: trachea midline, no thyromegaly Respiratory: normal respiratory effort, lungs clear to auscultation Cardiovascular: RRR, no murmur, no edema Gastrointestinal (Abdomen): normal bowel sounds, soft, nontender, no hepatosplenomegaly Musculoskeletal: no cyanosis or clubbing, extremities motor strength 5/5 Skin: no rashes, warm and dry Neurologic: PERRL, EOMI, accommodation nl, no face palsy, no dysarthria Psychiatric: A+Ox3, euthymic affect Results & Data Results & Data ([facility]) Vital Signs (Past 12 Hours) Vital Signs Temp Pulse Resp BP Pulse Ox 03/17/20 15:06 36.8 C 55 L 16 102/58 L 100 03/17/20 08:17 58 L 100/63 98
[2020-03-17] MEDS: SIMVASTATIN 80 MG TAB PO SCH (20:36)
[2020-03-18] MEDS: ASPIRIN 81 MG ECTAB PO SCH (08:47)
[2020-03-18] MEDS: METOPROLOL TARTRATE 25 MG TAB PO SCH (08:47)
[2020-03-18] MEDS: TAMSULOSIN HCL 0.4 MG CAP PO SCH (08:47)
--- NOTE | 2020-03-18 09:33 | Communication Note ---
Date of Service: March 18, 2020 pt passed rt ureteric stone spontaneously yesterday evaluated by Urology in Am out pt follow up with Urology in 4-6 weeks abx changed to PO Cipro will be discharged home today Francisca Lewis MD
--- NOTE | 2020-03-18 09:48 | Urology Progress Note ---
Date of Service March 18, 2020 Assessment & Plan (1) Left ureteral stone: 64 yo F admitted for 2 mm right distal ureteral stone and hydronephrosis. - Doing well after stone passage - Stone analysis pending - Okay to discharge to home from perspective - Recommend discharge with short course of PO antibiotics - Okay to discontinue Tamsulosin - Will arrange follow-up outpatient with our service in 4-6 weeks with ANTHONY Thank you for allowing us to participate in the acute care of Mrs. Blair. Please reconsult us with additional questions, concerns or changes in patient status. Admission and Anticipated Discharge Date Admission Date: March 16, 2020 Subjective Pt sitting up in bed, eating breakfast. Passed stone last evening. Feeling good, some minimal right abdominal/flank pain. Voiding spontaneously without difficulty. No dysuria or hematuria. Tolerating diet, no nausea or vomiting. No fever or chills. Chart review: Afebrile. No new lab work on chart at time of visit. Stone analysis pending. No additional concerns this AM. Review of Systems Constitutional: as per Subjective / HPI Gastrointestinal: as per Subjective / HPI Genitourinary: as per Subjective / HPI Physical Exam Constitutional: well developed and well nourished; no acute distress and not ill appearing Respiratory: normal respiratory effort and able to speak in complete sentences; no respiratory distress and no labored breathing Cardiovascular: Extremities: no pedal edema Gastrointestinal (Abdomen): Inspection/Auscultation: abdomen normal to inspection; abdomen not distended Musculoskeletal: Head/Neck/Chest: normocephalic and head atraumatic Skin: warm and dry Neurologic: moves all extremities and awake Psychiatric: A+Ox3, euthymic affect Results & Data ([facility]) Vital Signs (Past 12 Hours) Vital Signs Temp Pulse Resp BP Pulse Ox 03/18/20 08:45 63 03/18/20 08:09 36.5 C 54 L 16 134/84 98 03/17/20 23:12 37.0 C 57 L 16 126/76 97 PG Care Time/CCT Total # of Minutes Spent Total Time Spent with Patient: Total time spent is greater than 50% in coordination of care (as documented) at patient's floor/unit and/or counseling patient: Coding Level of Care Code 84543 Subseq Hosp Care Lvl 2 Diagnoses Left ureteral stone N20.1
[2020-03-18] MEDS ORDERED: CIPROFLOXACIN 250 MG TAB PO SCH (10:00)
[2020-03-18 11:32] LABS: BUN Creatinine Ratio 12.5 (10-20); Calcium 8.9 mg/dl (8.5-10.1); Creatinine Clr Calc Pharmacy 62.6 ml/min; Est GFR (African American) 86.4; Est GFR (Non-African American) 74.6; Potassium 3.7 mmol/L (3.5-5.1)
--- NOTE | 2020-03-19 10:46 | Discharge Summary ---
Date of Service March 19, 2020 Admission HPI Per Admitting Provider DICTATED BY: Tyler Varma MD DATE OF ADMISSION: 03/16/2020 CHIEF COMPLAINT: Right renal colic. HISTORY OF PRESENT ILLNESS: This is a 64-year-old female with past medical history significant for CAD, status post drug-eluting stent to LAD in 2009, history of chronic lymphedema in the left leg, anxiety, hypertension, hyperlipidemia, she states she had a kidney stone around 2018, presents with severe right flank pain since yesterday morning. Yesterday the pain was very severe that she could not even take her dog to the walk. In the nighttime, she could lie only in one position on the back side, but in the middle of the night, she thinks the stone might have moved and she could be able to walk a little . but again today the pain was coming back and she went to see her PCP where the imaging studies were done, which showed an obstructing 2 mm calculus in the distal right ureter resulting in mild upstream hydroureteronephrosis and right renal perinephric infiltration without drainable collection and was advised to come to the ER. In the ER, patient received Toradol, morphine, Rocephin and fluids, and she is feeling better. The pain is improved. Currently resting comfortably and hemodynamically stable. Because there is a possibility of infection, the patient is getting admitted to be seen by urology in the a.m. She has had some headache for the last couple of days, she was a little dizzy today because she did not eat anything today. She was nauseous yesterday, but it got resolved. No blurred visions. No earache, no runny nose, no sore throat, no dysphagia, no chest pain, no shortness of breath, no cough, no fever, felt chills but blankets feeling better. No burning micturition, no hematuria. Normal bowel movements. Chronic lymphedema in the left leg, ambulates okay. Principal Diagnosis Ureteric stone Discharge Exam Constitutional WD/WN, vitals as above Eyes PERRL, conjunctivae normal, anicteric sclerae ENMT external ear and nose normal, oropharynx normal Neck trachea midline, no thyromegaly Respiratory normal respiratory effort, lungs clear to auscultation Cardiovascular RRR, no murmur, no edema Gastrointestinal (Abdomen) normal bowel sounds, soft, nontender, no hepatosplenomegaly Musculoskeletal no cyanosis or clubbing, extremities motor strength 5/5 Skin no rashes, warm and dry Neurologic PERRL, EOMI, accommodation nl, no face palsy, no dysarthria Psychiatric A+Ox3, euthymic affect Discharge Data Allergies Allergy/AdvReac Type Severity Reaction Status Date / Time fluoxetine Allergy Unknown NAUSEA Verified 03/16/20 18:49 venlafaxine Allergy Unknown NAUSEA Verified 03/16/20 18:49 Consultations 03/16/20 19:15 ED Decision to Admit Stat 03/17/20 08:00 Consult Urology Routine Hospital Course (1) Renal colic: admitted with acute right sided flank pain out pt CT abdomen showed : an obstructing 2 mm calculus in the distal right ureter resulting in mild upstream hydroureteronephrosis and right renal perinephric infiltration without urology eval appreciated KUB shows non visualization of rt ureteric stone - ,pt passed the ureteric stone spontaneously yesterday with resolution of flank pain sample sent to lab for stone analysis appreciate input form Urology stable to be discharged home today clinic follow up in 4-6 weeks Acute renal failure on CKD stage 3 : resolved cr improved to baseline Total Time Total Time Spent Total Time Spent (In Minutes): 35 mins Total Time Includes: Discharge Planning and Medication Reconciliation Discharge Plan Discharge Items Patient Disposition: Home - Self-Care Reason For Visit: KIDNEY STONE Discharge Diagnosis: KIDNEY STONE Activity: Resume your previous activity Non-emergency contact: Primary Care Provider Call non-emergency contact if: you have any medication questions Follow-up/Referrals: Angel Lundberg DO [Physician] - 04/20/20 1:30 pm (Urology follow up in 4-6 weeks office will also be calling you to make an appointment for an ultrasound ) China Carrillo DO [Primary Care Provider] - 03/24/20 11:10 am (Date & Time 03/24/2020 11:10 AM Provider China Carrillo DO Department [facility] ) Diet: Heart Healthy Ambulatory Orders: Basic Metabolic Panel (Routine) Timeframe: 1 Week Location: Determined by Patient Ordered By: Francisca Luna Attending Provider Instructions: Follow up with Urology in 4-6 weeks Do not take Aleve, Advil , Ibuprophen , Naproxen , Motrin -avoid over the counter -NSAID group pain meds , will cause worsening of your renal function Pending Studies at Discharge: Yes Studies:: Lab: Basic Metabolic Panel in 1 week Stand-Alone Forms: [facility], Smoking Cessation Medications and DC Order Prescriptions: New ciprofloxacin HCl [Cipro] 250 mg tablet 250 mg PO BID 3 Days Qty: 6 RF: 0 Continued simvastatin 80 mg tablet 80 mg PO QPM Qty: 90 RF: 3 metoprolol tartrate 25 mg tablet 25 mg PO BID Qty: 180 RF: 3 clonazepam 0.5 mg tablet 0.25 - 0.5 mg PO TID PRN (Reason: Anxiety) Qty: 30 RF: 0 aspirin 81 mg Tablet,Delayed Release (Dr/Ec) 81 mg PO QAM RF: 0 Discontinued ibuprofen 200 mg Tablet 200 mg PO Q6H PRN (Reason: Pain) RF: 0 Discharge Orders: Discharge Order (Routine); Ordered 03/18/20 Ordered By: Francisca Dumont/Other Patient Handouts: Ciprofloxacin tablets Admission Data Admit Date/Time: 03/16/20 20:03 Attending Provider: Francisca Lewis Admit Provider: Tyler Varma Primary Care Provider: China Carrillo Other Providers: Tyler Varma ; Angel Lundberg Other Interventions: Discharge Summary Assessment (RN) Last Done: 03/18/20 10:28
[2020-03-22 15:01] LABS: Component 2 DNR; Source KIDNEY
== END 2020-03-18 14:20 | disposition home or self-care (01) | DRG 684 ==
LOC: ED 16:41 → 3E 20:03
DX: F41.9 Anxiety disorder, unspecified; N13.30 Unspecified hydronephrosis; Z79.82 Long term (current) use of aspirin; I25.10 Atherosclerotic heart disease of native coronary artery without angina pectoris; N18.30 Chronic kidney disease, stage 3 unspecified; I12.9 Hypertensive chronic kidney disease with stage 1 through stage 4 chronic kidney disease, or unspecified chronic kidney disease; N23 Unspecified renal colic; E78.5 Hyperlipidemia, unspecified; N17.9 Acute kidney failure, unspecified